=== PATIENT | female | born 1960 | race Caucasian/White ===

== ENCOUNTER 2016-10-06 10:56 | Inpatient (IN) ==
--- NOTE | 2016-10-05 22:04 | Discharge Summary ---
<Adilene Ugalde - Last Filed: 10/05/16 22:01> Date of Encounter: 10/05/16 - Discharge Diagnosis (1) Instability of left knee joint Priority: Primary Status: Acute (2) Tobacco use Priority: Secondary Status: Chronic (3) COPD (chronic obstructive pulmonary disease) Priority: Secondary Status: Chronic Qualifiers: COPD type: unspecified COPD Qualified Code(s): J44.9 - Chronic obstructive pulmonary disease, unspecified (4) Obesity Priority: Secondary Status: Chronic Qualifiers: Obesity type: unspecified obesity type Obesity severity: unspecified obesity severity Qualified Code(s): E66.9 - Obesity, unspecified (5) Asthma Priority: Secondary Status: Chronic Qualifiers: Asthma severity: unspecified severity Asthma complication type: uncomplicated Qualified Code(s): J45.909 - Unspecified asthma, uncomplicated - Discharge Medications Home Medications: Aspirin Enteric Coated [Aspirin EC] 325 mg PO DAILY #21 tablet.dr 10/05/16 [Rx] OxyCODONE Immed Rel [Roxicodone 5 MG] 5 - 10 mg PO Q6HR PRN #40 tablet 10/05/16 [Rx] Albuterol Sulfate [Albuterol Inhaler] 2 puff IH Q4H PRN 10/06/16 [History] Ipratropium [ATROVENT Inhaler] 2 puff IH QID PRN 10/06/16 [History] Allergies/Adverse Reactions: Allergies doxycycline Allergy (Verified 10/06/16 18:15) Rash Tetracycline Allergy (Verified 10/06/16 18:15) Rash Primary care physician: Kaitlin Perry CNP - Patient Status Disposition: Home, Self-Care Condition: Good - Discharge Instructions Follow Up With: Kaitlin Perry CNP [Primary Care Provider] - - Hospital Course Hospital course: Ms. Kelley is a 56 year old female - Time Spent with Patient Total time spent providing and/or coordinating discharge services: <Arron Caceres - Last Filed: 10/07/16 06:47> Date of Encounter: 10/07/16 Time of Encounter: 06:46 - Discharge Diagnosis (1) Instability of left knee joint Priority: Primary Status: Acute (2) Tobacco use Priority: Secondary Status: Chronic (3) COPD (chronic obstructive pulmonary disease) Priority: Secondary Status: Chronic Qualifiers: COPD type: unspecified COPD Qualified Code(s): J44.9 - Chronic obstructive pulmonary disease, unspecified (4) Obesity Priority: Secondary Status: Chronic Qualifiers: Obesity type: unspecified obesity type Obesity severity: unspecified obesity severity Qualified Code(s): E66.9 - Obesity, unspecified (5) Asthma Priority: Secondary Status: Chronic Qualifiers: Asthma severity: unspecified severity Asthma complication type: uncomplicated Qualified Code(s): J45.909 - Unspecified asthma, uncomplicated Primary care physician: Kaitlin Perry CNP - Patient Status Functional capacity at discharge: uses cane/walker Overall status at discharge: patient is progressing back to baseline - Hospital Course Hospital course: Ms. Kelley is a 56 year old female The patient had an uneventful postoperative course. They received antibiotics and physical therapy and were discharged in stable condition. There will follow -up in the office in 2 weeks. Aspirin DVT prophylaxis - Time Spent with Patient Total time spent providing and/or coordinating discharge services:
[2016-10-06] MEDS ORDERED: CeFAZolin Pre 2,000 MG/100 ML 2,000 MG/100 ML BAG IVPB ONE (11:13)
[2016-10-06] MEDS ORDERED: Albuterol 2.5 MG/3 ML NEBULIZER IH ONE (11:13)
[2016-10-06] MEDS ORDERED: Ringers Solution, Lactated 1,000 ML IVC SCH ×2 (11:15→17:37)
[2016-10-06] MEDS ORDERED: Gabapentin 300 MG CAPSULE PO ONE (11:17)
[2016-10-06] MEDS ORDERED: Famotidine 20 MG/2 ML VIAL IVP ONE (11:17)
[2016-10-06] MEDS ORDERED: Albuterol 2.5 MG/3 ML NEBULIZER ONE (11:17)
--- NOTE | 2016-10-06 11:23 | History & Physical Report ---
Date of Encounter: 10/06/16 Time of Encounter: 11:23 24 Hour HP Update - Instructions Instructions: If the History and Physical is less than 30 days old and was completed prior to A.M. admission and or procedure and has NOT been updated on calendar day of procedure please complete this update prior to performing procedure. - Update Patient reports changes in Medical Condition: No Changes in examination, assessment, or condition: No Changes in Medication: No Preop tests/diagnostics Reviewed: Yes Surgery Remains Indicated: Yes Consent for Planned Operative Procedure(s) Verified: Yes - Pre-Operative Checklist Preoperative Checklist Indicated: No Prophylactic Antibiotic Ordered: Yes Is VTE Prophylaxis Indicated?: Yes
--- NOTE | 2016-10-06 12:13 | Anesthesia Evaluation PreOp ---
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 10/05/16 [Rx] OxyCODONE Immed Rel [Roxicodone 5 MG] 5 - 10 mg PO Q6HR PRN #40 tablet 10/05/16 [Rx] Albuterol Sulfate [Albuterol Inhaler] 2 puff IH Q4H PRN 10/06/16 [History] Ipratropium [Atrovent Inhaler] 2 puff IH QID PRN 10/06/16 [History] Allergies doxycycline Allergy (Unverified 09/23/16 14:14) Rash Tetracycline Allergy (Unverified 09/23/16 14:14) Rash - Meds/Allergy Pre-op Review Medications Reviewed: Yes Allergies Reviewed: Yes Beta Blockers on Current Med List: No Anesthesia Results - Labs Laboratory Tests 09/23/16 09/23/16 14:20 14:20 Hgb 15.7 H Hct 51.0 H Plt Count 270 Sodium 139 Potassium 4.3 BUN 9 Creatinine 0.84 - Imaging EKG: report reviewed (SR) Anesthesia Exam O2 Sat Height 1.63 m Height 1.63 m Height 1.63 m Weight 95.254 kg Weight 95.254 kg Weight 95.254 kg O2 Sat by Pulse Oximetry 97 Vital Signs Temp Pulse Resp BP Pulse Ox 98.7 F 79 18 156/93 97 10/06/16 11:12 10/06/16 11:12 10/06/16 11:12 10/06/16 11:12 10/06/16 11:12 Height: 5'4 Weight: 210 lbs NPO (# of Hours): MN Pain Scale: 0 - HEENT Pupil (Motor): Pupils equal, EOMI Mallampati: III Teeth: Missing Oral Opening: Less than or equal to 3 - THERAPEUTIC CONSULTANT LOC: Oriented THERAPEUTIC CONSULTANT Motor: Normal RUE, Normal LUE, Normal RLE, Normal LLE, Normal Face THERAPEUTIC CONSULTANT Sensory: Normal: RUE, LUE, RLE, LLE, Face - Cardiac Rhythm: Regular Murmur: None JVD: No Carotid Bruit: No - Pulmonary Breath Sounds: bilateral Clear Respiratory Effort: Symmetrical Anesthesia Assess/Plan ASA Score: 3 (COPD Tobacco) Modified Alma Scale for Level of Consciousness: Cooperative, oriented, and tranquil Anesthetic Plan: General, Regional Monitoring Plan: Standard Monitors Recovery Plan: PACU (Discussed GA and RA, agrees to proceed)
[2016-10-06] MEDS ORDERED: *HR* FentaNYL (PF) 100 MCG/2 ML VIAL ONE (13:07)
[2016-10-06] MEDS ORDERED: *HR* Midazolam HCl 2 MG/2 ML VIAL ONE ×2 (13:07→13:23)
[2016-10-06] MEDS ORDERED: *HR* Propofol 200 MG/20 ML VIAL IVP ONE (13:08)
[2016-10-06] MEDS ORDERED: Lidocaine -MPF 2% 2 ML VIAL ONE (13:10)
[2016-10-06] MEDS ORDERED: Tetracaine/PF 20 MG/2 ML AMPUL ONE (13:16)
[2016-10-06] MEDS ORDERED: Bupivacaine/Clonidine Syringe 1 EACH SYRINGE ONE (13:17)
[2016-10-06] MEDS ORDERED: Ondansetron 4 MG/2 ML VIAL ONE (13:54)
[2016-10-06] MEDS ORDERED: *HR* Magnesium Sulfate 1 GM/2 ML VIAL ONE (13:54)
[2016-10-06] MEDS ORDERED: Dexamethasone 4 MG/ML VIAL ONE (13:54)
[2016-10-06] MEDS ORDERED: Ketorolac 30 MG/ML VIAL ONE (13:57)
[2016-10-06] MEDS ORDERED: *HR* HYDROmorphone 2 MG/ML SYRINGE ONE (14:03)
[2016-10-06] MEDS ORDERED: *HR* Labetalol 100 MG/20 ML MDV IVP PRN (14:12)
[2016-10-06] MEDS ORDERED: *HR* Promethazine 25 MG/ML VIAL IVP PRN (14:12)
--- NOTE | 2016-10-06 14:15 | Anesthesia Procedures ---
Date of Encounter: 10/06/16 Time of Encounter: 13:30 Procedures: Anesthesia - Nerve Block Procedure Date: 10/06/16 Time: 13:30 Allergies/Adv Reactions: doxycycline, tetracycline Pre-op Diagnosis: left knee instability Surgical Procedure: left TKA revision Checklist: Correct Patient Identifier, Correct procedure, History checked Correct side: Left Blood Thinner: No Monitor Applied: EKG, BP, Pulse Oximetry Supplemental Oxygen via Nasal Cannula (L/min): 2 Sedation: Versed (mg): 4 Sedation: Fentanyl (mcg): 100 Indication: Post Op Analgesia Pre-op Neuro Deficits: No Block Type: Femoral, Other (IPACK) Catheter placed: No Sterile Technique: Yes Ultrasound used: Yes Anatomy identified: Yes Visual spread of Local: Yes Neuro Stimulation: Yes (femoral only) Nerve Stimulator Range: 0.2 - 0.4 mA Blood on Needle Aspiration: No Smooth Injection of Local: Yes Pain with Injection of Local: No Prep: Chlorhexadine Needle: 22 x 50 mm Stimuplex, 21 x 100 mm Stimuplex Local: 0.25% Bupivicaine w/Clonidine 20 mcg/cc, Tetracaine, Ropivacaine Volume (cc): 60 Number of Attempts: 1 (30mL iPACK, 30mL femoral) Complications: None/effective block Vitals: Vital Signs/O2 Sat/Glucose, Most Recent Temp Pulse Resp BP Pulse Ox 98.7 F 68 16 138/93 99 10/06/16 11:12 10/06/16 13:31 10/06/16 13:31 10/06/16 13:31 10/06/16 13:31
--- NOTE | 2016-10-06 15:20 | Orthopedic Operative Note ---
Date of procedure: 10/06/16 Pre-op diagnosis: Unstable left total knee Post-op diagnosis: same Procedure: Procedure: Left revision total knee Estimated blood loss: 200 mL Hardware: No and polyethylene replacement. Biomet SS K 60 left femur 10 x 40 stem , 75 tibia, 24 constrained Perla, Exam Under anesthesia: Full extension and flexion significant varus valgus instability. Well-healed incision of swelling or erythema Procedural Notes: Very Unstable total knee, patient had femoral stem and tibial stem cemented. This affected ability to stem revision femur and tibia. Removal of the cement would have jeopardized the integrity of the bone. Operative procedure: The patient was brought to the operating room and placed on the operating room table. After general anesthesia was administered the operative knee was examined. Findings were noted in the exam under anesthesia. The operative extremity was prepped and draped in sterile surgical fashion. The patient received IV antibiotics prior to skin incision. A standard midline incision was made centered over the patella through the old incision. The incision was made through the skin and subcutaneous tissue. A medial parapatellar tendon approach was performed. Care was taken to preserve tissue along the medial aspect of the patella. And to protect the patella tendon. The deep MCL was released off the medial tibia. The infra patella fat pad was excised. Fluid was encountered this was normal joint fluid, Cultures were obtained and gram . The knee was brought into flexion the poly-was removed. The interface between the patient's femoral component and distal femur were disrupted with a osteotome and oscillating saw. Femoral component was removed the femoral stem remained behind and required extraction with a stem extracting device. Patient had a lot of retained cement. Removal of the cement would have compromised the femoral canal and distal femur. Attention was then turned to the tibial component. The same technique was used to remove the tibial component by disrupting the interface between the patient's tibial component and the patients proximal tibia. The tibial stem as well as left behind and required removal with a stem extraction device. The proximal tibia was also full cement operative significantly, my integrity of the tibia the cement was removed. Decision was made to be cement the squared tibial component without stem. The tibia was sized to a 75 the proximal tibia was box cut the tray had good fit and fixation. The femur was sized to a 60, the trial had good fit and fixation with a 10 x 40 stem. Both trial components were seated and the 24 constrained Perla was seated and secured. The knee had full flexion and full extension with no instability. The patella had excellent tracking. The trial components were removed. The knee sat for 2 minutes with a Betadine saline solution. It was irrigated out with 2 L of pulse irrigation. The components were cemented in place tibia first followed by the femur. The 24 constrained liner was seated and secure. The knee was brought to full extension while the cement hardened. After the cement hardened the knee was irrigated out again. The extensor mechanism was closed with a running #2 Fiberwire suture and a running #2 PDS suture. The deep tissue was irrigated and closed deep with #1 PDS suture superficially with 0 PDS suture. The skin was closed with skin phoenix. The patient was placed in a sterile dressing and postoperative brace. They were extubated and transferred to recovery room in stable condition. Anesthesia: SOL Surgeon: Arron Caceres Medical Delivery Driver: Adilene Ugalde Condition: stable Disposition: PACU
[2016-10-06] MEDS: *HR* HYDROmorphone (PF) 1 MG/ML SYRINGE IVP PRN ×4 (15:55→20:41)
[2016-10-06 16:09] LABS: Hematocrit 44.6 % (35.3-44.9)
--- NOTE | 2016-10-06 16:25 | Anesthesia Evaluation Post Op ---
Date of Encounter: 10/06/16 Time of Encounter: 16:24 - Vital Signs Vital Signs: Selected Entries 10/06/16 16:10 Temperature 98.5 F Pulse Rate 72 Respiratory Rate 16 Blood Pressure 126/80 O2 Sat by Pulse Oximetry 94 - Lungs Lungs: Clear Ascult./Percussion - Airway Airway: Non-obstructed - Cardiovascular Regular Rate - Mental Status Mental Status: Alert & Oriented, Answers Appropriately - Pain Pain Scale: 0 Pain Scale used: Numeric (1 - 10) - Nausea Vomiting Nausea Vomiting: Not Present - Hydration Hydration: Ice chips, Chen catheter - Discharge PostOp Status: Transfer Patient to floor
[2016-10-06] MEDS ORDERED: *HR* OxyCODONE Immed Rel 5 MG TABLET PO PRN (17:37)
[2016-10-06] MEDS ORDERED: Naloxone 0.4 MG/ML INJ IVP PRN (17:37)
[2016-10-06] MEDS ORDERED: Ipratropium 1 PUFF INHALER IH PRN (17:37)
[2016-10-06] MEDS ORDERED: Temazepam 15 MG CAPSULE PO PRN (17:37)
[2016-10-06] MEDS ORDERED: Sennosides 8.6 MG TABLET PO PRN (17:37)
[2016-10-06] MEDS ORDERED: Ondansetron 4 MG/2 ML VIAL IVP PRN (17:37)
[2016-10-06] MEDS ORDERED: MOM Conc 10 ML UD.LIQ PO PRN (17:37)
[2016-10-06] MEDS: *HR* Enoxaparin 30 MG/0.3 ML SYRINGE SQ SCH (17:59)
[2016-10-06] MEDS ORDERED: *HR* Enoxaparin 30 MG/0.3 ML SYRINGE SQ SCH (18:00)
[2016-10-06] MEDS: Nicotine 21 MG PATCH.TD24 TD SCH (20:41)
[2016-10-06] MEDS: ceFAZolin 2,000 MG in D5% in Water 100 ML IVPB SCH (20:42)
[2016-10-06] MEDS: *HR* OxyCODONE Immed Rel 5 MG TABLET PO PRN (23:01)
[2016-10-07] MEDS: *HR* HYDROmorphone (PF) 1 MG/ML SYRINGE IVP PRN ×3 (00:22→06:37)
[2016-10-07] MEDS: ceFAZolin 2,000 MG in D5% in Water 100 ML IVPB SCH (04:16)
[2016-10-07] MEDS: *HR* Enoxaparin 30 MG/0.3 ML SYRINGE SQ SCH (05:19)
[2016-10-07] MEDS: *HR* OxyCODONE Immed Rel 5 MG TABLET PO PRN ×2 (05:19→09:14)
[2016-10-07 06:32] LABS: Hematocrit 41.6 % (35.3-44.9); Hemoglobin 12.9 g/dL (11.5-15.4)
--- NOTE | 2016-10-07 06:47 | Orthopedics Progress Note ---
Date of Encounter: 10/07/16 Time of Encounter: 06:47 - Assessment and Plan (1) Instability of left knee joint Current Visit: Yes Status: Acute (2) Tobacco use Current Visit: Yes Status: Chronic (3) COPD (chronic obstructive pulmonary disease) Current Visit: Yes Status: Chronic Qualifiers: COPD type: unspecified COPD Qualified Code(s): J44.9 - Chronic obstructive pulmonary disease, unspecified (4) Obesity Current Visit: Yes Status: Chronic Qualifiers: Obesity type: unspecified obesity type Obesity severity: unspecified obesity severity Qualified Code(s): E66.9 - Obesity, unspecified (5) Asthma Current Visit: Yes Status: Chronic Qualifiers: Asthma severity: unspecified severity Asthma complication type: uncomplicated Qualified Code(s): J45.909 - Unspecified asthma, uncomplicated Subjective Interval history: Patient was seen this morning doing well without complaints. Afebrile vital signs stable. Operative extremity: Neurovascularly intact Dressing clean dry and intact Calves nontender Assessment and plan: Continue with postoperative care Hematocrit 41 discharged today Objective Vital signs: Vital Signs Temp Pulse Resp BP Pulse Ox 10/07/16 06:35 71 123/76 10/07/16 04:23 97.6 F 56 16 96/63 95 10/06/16 23:44 97.8 F 80 16 109/71 94 10/06/16 20:15 98.8 F 64 16 132/68 95 10/06/16 18:23 77 125/80 98 10/06/16 17:30 80 130/89 97 10/06/16 16:45 66 134/82 10/06/16 16:30 97.6 F 78 16 126/84 97 10/06/16 16:20 80 16 124/85 98 10/06/16 16:10 98.5 F 72 16 126/80 94 10/06/16 16:00 73 16 130/66 94 10/06/16 15:50 88 16 131/97 94 10/06/16 15:40 97.5 F L 80 16 123/84 97 10/06/16 13:31 68 16 138/93 99 10/06/16 13:16 72 16 146/80 99 10/06/16 11:12 98.7 F 79 18 156/93 97 Intake and Output 10/06/16 10/06/16 10/07/16 15:59 23:59 07:59 Intake Total 100 / 100 100 / 100 580 / 580 Output Total 200 / 200 Balance -100 / -100 100 / 100 580 / 580 Intake: IV Fluids 100 / 100 100 / 100 100 / 100 Ancef Premix 2,000 MG/100 100 / 100 ML 2,000 mg In 100 ml @ 200 mls/hr IVPB PREOP ONE Rx#:[id number] Ancef 2,000 MG In 100 / 100 100 / 100 Dextrose 5% 100 ML @ 200 mls/hr IVPB Q8H [facility] Rx#: [id number] Oral 480 / 480 Output: Urine 0 / 0 Estimated Blood Loss 200 / 200 Other: Weight 95.254 kg - Labs CBC & BMP: 10/07/16 06:15 - VTE Documentation of Mechanical Device: Intermittent pneumatic compression device Consult Discharge Plan - Plan Referrals: Kaitlin Perry, ACCOUNT SERVICE ASSOCIATE [Primary Care Provider] -
[2016-10-07 06:50] LABS: BUN/Creatinine Ratio 21 (6-26); Blood Urea Nitrogen 17 mg/dL (7-20); Calcium 8.9 mg/dL (8.6-10.8); Carbon Dioxide 21 mEq/L (19-29); Chloride 108 mEq/L (98-109); Glucose 124 mg/dL (70-99); Osmolality,Calculated 285 (280-300); Potassium 4.3 mEq/L (3.5-4.5); Sodium 136 mEq/L (136-145); eGFR For African Americans > 60 (> 60); eGFR For Non-African Americans > 60 (> 60)
[2016-10-07 06:55] VITALS: BP 166/72
[2016-10-07] MEDS: Nicotine 21 MG PATCH.TD24 TD SCH (09:13)
== END 2016-10-07 13:47 | disposition home or self-care (01) | DRG 302 ==
LOC: SAMDAY 10:56 → 3NENU 17:29
PROVIDERS: ADMIT Orthopaedic Surgery; ATTEND Orthopaedic Surgery

== ENCOUNTER 2017-03-05 17:58 | Observation (INO) ==
--- NOTE | 2017-03-05 18:57 | Emergency Department Note ---
Disposition Clinical Impression: Stable angina Disposition: Admitted As Inpatient Condition: Good Time of Disposition: 20:36 Chest Pain HPI - General Chief Complaint: ED Chest Pain Stated Complaint: "water around my heart", sent from Time Seen by Provider: 03/05/17 18:21 Source: patient Mode of arrival: ambulatory Limitations: no limitations Vital Signs Reviewed: Yes Nursing Notes Reviewed: Yes - History of Present Illness HPI Narrative: Patient presents to the ED with the chief complaint of chest pain and shortness of breath. Patient reports that she has a history of "A. fib" that was diagnosed at [facility] 5 years ago. States she had a normal stress test and heart catheter at that point. States she was not placed on any medication or anticoagulants. Reports doing well since then. States that she has been dealing with a terminal illness and her mother and is been under a lot of stress. For the last 2 days she has been having intermittent, but fairly consistent chest pressure and heaviness that is retrosternal, radiating through to her back. She is also having some shortness of breath and exertional dyspnea. Also complaining of bilateral lower extremity edema significantly worse last week and has since improved. States she just feels like she is getting more short of breath than usual. States that she went to her primary care physician today who told her she had fluid around her lungs and heart based on physical exam, and that she needed to go to the emergency department. She states she feels relatively fine otherwise. She is on no anticoagulants or antiplatelet medications. Her last cardiac evaluation was 5 years ago. No history of DVT, PE, or malignancy. No history of coronary artery disease. Severity scale (1-10): 7 - Related Data Home Medications Medication Instructions Recorded Confirmed Albuterol Sulfate [Albuterol 2 puff IH Q4H PRN 10/06/16 03/05/17 Inhaler] Ipratropium [ATROVENT Inhaler] 2 puff IH QID PRN 10/06/16 03/05/17 Previous Rx's Medication Instructions Recorded Aspirin Enteric Coated [Aspirin EC] 81 mg PO DAILY #30 tablet.dr 03/06/17 Atorvastatin [Lipitor] 40 mg PO HS #30 tablet 03/06/17 Isosorbide MONOnitrate (24 HR) 30 mg PO DAILY #30 tab.er.24h 03/06/17 [Imdur] Metoprolol XL (24 HR) Succ [Toprol 12.5 mg PO DAILY #15 tab.er.24h 03/06/17 Xl] Nitroglycerin 0.4 mg SL Q5MIN PRN #25 tab.subl 03/06/17 Allergies Allergy/AdvReac Type Severity Reaction Status Date / Time doxycycline Allergy Rash Verified 03/07/17 18:54 Tetracycline Allergy Rash Verified 03/07/17 18:54 All systems ED: reviewed and negative except as stated. Constitutional: Denies: fever Cardiovascular: Reports: chest pain, palpitations, dyspnea on exertion, orthopnea, edema. 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 Absent: normal lung sounds bilaterally - Cardiovascular Cardiovascular exam: Present: regular rate, normal rhythm, normal heart sounds - Abdominal Exam Abdominal exam: Present: soft, Non-Tender. Absent: tenderness, distention, guarding, rebound, rigidity - Extremities Exam Extremities exam: Present: normal inspection, full ROM. Absent: tenderness, pedal edema - Neurological Exam Neurological exam: Present: alert, oriented X3 - Psychiatric Psychiatric exam: Present: normal affect, normal mood - Skin Skin exam: Present: warm, dry, intact, normal color Course Course Narrative: Patient presenting with chest pain and exertional dyspnea. He sounds like it could be an early congestive heart failure. Will workup and disposition pending. Patient stable Vital Signs Temperature 98.4 F 03/05/17 18:15 Pulse Rate 77 03/05/17 18:15 Respiratory Rate 16 03/05/17 18:15 Blood Pressure 144/92 03/05/17 18:15 O2 Sat by Pulse Oximetry 99 03/05/17 18:15 Temperature 98 F 03/06/17 12:05 Pulse Rate 75 03/06/17 12:05 Respiratory Rate 18 03/06/17 12:05 Blood Pressure 109/73 03/06/17 12:05 O2 Sat by Pulse Oximetry 97 03/06/17 12:05 Oxygen Delivery Oxygen Delivery Room Air Chest Pain - Medical Records Medical records reviewed: Yes I reviewed the patient's medical records. - Lab Data Lab results reviewed: Yes I reviewed the patient's lab results. Result diagrams: 03/06/17 00:56 03/06/17 00:56 Lab Results 03/05/17 03/05/17 03/05/17 Range/Units 18:46 18:46 18:46 WBC 7.1 (4.3-11.1) K/mcL RBC 5.31 H (3.82-4.97) M/mcL Hgb 13.3 (11.5-15.4) g/dL Hct 43.3 (35.3-44.9) % MCV 81.5 L (83.0-100.0) fL MCH 25.0 L (28.0-33.3) pg MCHC 30.7 L (31.6-35.5) g/dL RDW 16.6 H (11.5-14.5) % Plt Count 284 (140-400) K/mcL MPV 9.6 (9.4-12.4) fL Immature Gran % 0.4 (0-4) % Seg Neutrophils % 56.3 % Lymphocytes % 30.8 % Monocytes % 7.7 % Eosinophils % 3.8 % Basophils % 1.0 % Neutrophils # 4.0 (1.6-8.9) K/mcL Lymphocytes # 2.2 (0.6-4.6) K/mcL Monocytes # 0.5 (0.0-1.3) K/mcL Eosinophils # 0.3 (0.0-0.6) K/mcL Basophils # 0.1 (0.0-0.2) K/mcL PT 10.9 (9.4-12.1) Seconds INR 1.0 APTT 28.4 (26.0-36.0) Seconds Sodium (136-145) mEq/L Potassium (3.5-4.5) mEq/L Chloride (98-109) mEq/L Carbon Dioxide (19-29) mEq/L BUN (7-20) mg/dL Creatinine (0.57-1.11) mg/dL Est GFR ( Amer) (> 60) Est GFR (Non-Af Amer) (> 60) BUN/Creatinine Ratio (6-26) Glucose (70-99) mg/dL Calculated Osmolality (280-300) Calcium (8.6-10.8) mg/dL Troponin I (0-0.03) ng/mL B-Natriuretic Peptide 18 (0-100) pg/mL 03/05/17 03/05/17 Range/Units 18:46 18:46 WBC (4.3-11.1) K/mcL RBC (3.82-4.97) M/mcL Hgb (11.5-15.4) g/dL Hct (35.3-44.9) % MCV (83.0-100.0) fL MCH (28.0-33.3) pg MCHC (31.6-35.5) g/dL RDW (11.5-14.5) % Plt Count (140-400) K/mcL MPV (9.4-12.4) fL Immature Gran % (0-4) % Seg Neutrophils % % Lymphocytes % % Monocytes % % Eosinophils % % Basophils % % Neutrophils # (1.6-8.9) K/mcL Lymphocytes # (0.6-4.6) K/mcL Monocytes # (0.0-1.3) K/mcL Eosinophils # (0.0-0.6) K/mcL Basophils # (0.0-0.2) K/mcL PT (9.4-12.1) Seconds INR APTT (26.0-36.0) Seconds Sodium 141 (136-145) mEq/L Potassium 4.1 (3.5-4.5) mEq/L Chloride 108 (98-109) mEq/L Carbon Dioxide 28 (19-29) mEq/L BUN 10 (7-20) mg/dL Creatinine 0.77 (0.57-1.11) mg/dL Est GFR ( Amer) > 60 (> 60) Est GFR (Non-Af Amer) > 60 (> 60) BUN/Creatinine Ratio 13 (6-26) Glucose 89 (70-99) mg/dL Calculated Osmolality 291 (280-300) Calcium 9.8 (8.6-10.8) mg/dL Troponin I 0.00 (0-0.03) ng/mL B-Natriuretic Peptide (0-100) pg/mL - Radiology Data Radiology results reviewed: Yes I reviewed the patient's radiology results. Chest X-Ray 03/05/17 18:31 IMPRESSION: No acute process. D/ / Tracey Sam MD / Tracey Sam MD Interpreting Provider: Tracey Sam MD - EKG Data EKG attestation: Yes I reviewed and interpreted this EKG. EKG results narrative: Sinus rhythm, rate 70, IL interval 145, QRS 114, QTC 408, left axis deviation, incomplete right bundle branch block, unchanged from previous on 09/23/2016 Heart Score - Score History: Moderately Suspicious EKG: Non Specific repolarisation Disturbance Age: 45-65 Risk Factors: Equal/Greater than 3 risk factor or history of atherosclerotic disease Troponin: Less than normal limit HEART Score Total: 5 S.B.A.R. - S.B.A.ROlive Situation: Demographics, MOA Background: Presenting Complaint, Relevant PMH, Meds, & Allergies Assessment: Vital Signs, Course and respsone to treatment, Exam Concerns, Patient/Family Expectation, Pertinant Lab Results, Outstanding Labs Recommendation: Barrier(s) to disposition, Recommendation based on pending studies, treatments, or consults S.B.A.R. Report Given to: Caroline Lambert Time: 20:40 Attestation Statement - Attestation Attestation: I examined this patient and my medical decision-making was reviewed with the Resident Physician, Dr. Santana. I agree with the documented findings, disposition and treatment plan as described except to the extent set forth below. Pt is a 56 yo wf, here with c/o exertional dyspnea and CP. Pt last cardiac eval approx 5 yrs ago. Told to come to ED after clincial eval by PCP concerning for "fluid around her heart". I agree with pt's PE findings as documented. VSS. EKG shows NSR with no acute ischemia. CXR clear. Labs wnl includ trop. Pt admitted for further eval of CP, VSS.
[2017-03-05 19:08] LABS: Basophils # 0.1 K/mcL (0.0-0.2); Eosinophils # 0.3 K/mcL (0.0-0.6); Eosinophils % 3.8 %; Hematocrit 43.3 % (35.3-44.9); Hemoglobin 13.3 g/dL (11.5-15.4); Immature Granulocytes % 0.4 % (0-4); Lymphocytes # 2.2 K/mcL (0.6-4.6); Lymphocytes % 30.8 %; Mean Corpuscular HGB Conc 30.7 g/dL (31.6-35.5); Mean Corpuscular Volume 81.5 fL (83.0-100.0); Mean Platelet Volume 9.6 fL (9.4-12.4); Monocytes # 0.5 K/mcL (0.0-1.3); Monocytes % 7.7 %; Platelet Count 284 K/mcL (140-400); Red Blood Count 5.31 M/mcL (3.82-4.97); Red Cell Distribution Width 16.6 % (11.5-14.5); Segmented Neutrophils % 56.3 %
[2017-03-05 19:14] LABS: Prothrombin Time 10.9 Seconds (9.4-12.1)
[2017-03-05 19:16] LABS: Activated Partial Thrombo Time 28.4 Seconds (26.0-36.0)
[2017-03-05 19:23] LABS: BUN/Creatinine Ratio 13 (6-26); Blood Urea Nitrogen 10 mg/dL (7-20); Calcium 9.8 mg/dL (8.6-10.8); Carbon Dioxide 28 mEq/L (19-29); Chloride 108 mEq/L (98-109); Glucose 89 mg/dL (70-99); Osmolality,Calculated 291 (280-300); Potassium 4.1 mEq/L (3.5-4.5); Sodium 141 mEq/L (136-145); eGFR For African Americans > 60 (> 60); eGFR For Non-African Americans > 60 (> 60)
[2017-03-05] MEDS ORDERED: Aspirin 325 MG TABLET PO ONE (19:33)
[2017-03-05] MEDS: Nitroglycerin 0.4 MG TAB.SUBL SL PRN ×2 (19:59→20:03)
[2017-03-05] MEDS ORDERED: Ondansetron 4 MG/2 ML VIAL IVP PRN (21:01)
[2017-03-05] MEDS ORDERED: Naloxone 0.4 MG/ML INJ IVP PRN (21:01)
[2017-03-05] MEDS ORDERED: Acetaminophen 325 MG TABLET PO PRN (21:01)
[2017-03-05] MEDS: *HR* Morphine 2 MG/ML SYRINGE IVP PRN (23:05)
--- NOTE | 2017-03-05 23:33 | Internal Med History&Physical ---
<Lisa Daniel - Last Filed: 03/05/17 23:41> Date of Encounter: 03/05/17 Time of Encounter: 23:28 Assessment and Plan (1) Chest pain Current visit: Yes Status: Acute Patient has been experiencing intermittent chest pain the past 2 days. She does have history of paroxysmal atrial fibrillation- obesity and is a smoker First troponin was 0 we will continue to trend. 2 continuous cardiac monitoring 3 continue with aspirin we will check lipid profile at statin will hold beta muriel and Geo for now due to low blood pressure 4 nothing by mouth after midnight for cardiac stress in a.m. 5 nitroglycerin/morphine as needed for chest pain 6 oxygen as needed 7 consult cardiology as needed Qualifiers: Chest pain type: unspecified Qualified Code(s): R07.9 - Chest pain, unspecified (2) Tobacco use Current visit: No Status: Chronic Encourage patient to stop smoking- nicotine patch (3) COPD (chronic obstructive pulmonary disease) Current visit: No Status: Chronic Oxygen as needed Bronchodilators Qualifiers: COPD type: unspecified COPD Qualified Code(s): J44.9 - Chronic obstructive pulmonary disease, unspecified (4) DVT prophylaxis Current visit: Yes Status: Acute Lovenox [facility] Internal Medicine - H&P: HPI Chief complaint: cp Admitted From: Emergency Dept Plans for Post Hospital Care: Home History of present illness: Ms. Kelley is a 56 year old female past medical history of arthritis atrial fibrillation COPD hypertension. According to the patient for the past 2 days she is been experiencing intermittent chest pressure she describes as heaviness midsternal radiating to her back. She has associated symptoms of shortness of breath palpitations and exertional dyspnea. She also has been increasing lower extremity edema. She went to her primary care physician today who based upon the physical exam she had fluid around her lungs and that she needed to the emergency department. She also reports that proximal and 5 years ago at [facility] she underwent a cardiac catheter which she did not receive any stents however she did experience atrial fibrillation. She has been in sinus rhythm since this episode. She is not on any anticoagulations and A late or anything for rate control. She does admit that she has been under stress she has been providing care to her terminally ill mother. She presents to the ER with the above complaints. EKG was sinus rhythm with a incomplete right bundle branch block no ST-T wave abnormalities troponin was 0 she was admitted for further workup and evaluation. Presently patient is chest pain-free and denies any shortness of breath she is hemodynamically stable this time. Did review this case with Dr. Velazquez who agrees with plan Past Med Surg Social Fam HX - Past Medical History Medical history: arthritis, atrial fibrillation, COPD Psychiatric history: no psych history - Social History Smoking Status: Current every day smoker Smokeless Tobacco Status: No Alcohol use: none Drug use: none - Family History Mother Hx Family Cardiac Disorders: Yes Hx Family Respiratory Disorders: Yes Hx Family Genitourinary Disorders: Yes Father Living Status: Hx Family Cardiac Disorders: Yes Hx Family Endocrine Disorder: Yes Internal Medicine - H&P: Meds Albuterol Sulfate [Albuterol Inhaler] 2 puff IH Q4H PRN 10/06/16 [History] Ipratropium [ATROVENT Inhaler] 2 puff IH QID PRN 10/06/16 [History] 3 Allergy/AdvReac Type Severity Reaction Status Date / Time doxycycline Allergy Rash Verified 03/05/17 18:18 Tetracycline Allergy Rash Verified 03/05/17 18:18 All Systems PM: A 10-system review of systems was performed and is negative for pertinent findings except as documented above in the HPI. - Constitutional Constitutional: no chills, no fever(s), no night sweats - EENT Eyes: no change in vision, no discharge, no pain, no photophobia Nose, mouth and throat: no dysphagia, no nasal discharge, no neck pain, no sore throat - Cardiovascular Cardiovascular ROS IM: chest pain, dyspnea, dyspnea on exertion, palpitations, no diaphoresis, no lightheadedness, no syncope - Respiratory Respiratory: dyspnea on exertion, no cough, no dyspnea, no wheezing, no excessive phlegm production - Gastrointestinal Gastrointestinal: no abdominal pain, no diarrhea, no hematemesis, no hematochezia, no melena, no nausea, no vomiting - Genitourinary Genitourinary: no change in urinary stream, no dysuria, no flank pain, no hematuria - Musculoskeletal Musculoskeletal ROS IM: no numbness, no tingling - Integumentary Integumentary IM: no rash, no unusual bruising - Neurological Neurological ROS: no confusion, no convulsions, no focal weakness, no numbness, no tingling, no tremor(s) - Hematologic/Lymphatic Hematologic/Lymphatic: no easy bruising - Constitutional Vitals: Temp Pulse Resp BP Pulse Ox 97.8 F 80 16 109/67 94 03/05/17 23:18 03/05/17 23:18 03/05/17 23:18 03/05/17 23:18 03/05/17 23:18 General appearance: Present: A&O X 3, answers questions appropriately - Head Head exam: Present: atraumatic, normocephalic - Eye Eye exam: Present: PERRL, conjuntiva pink, sclera anicteric Pupils: Present: PERRL - Neck Neck exam general surgery: Present: supple, trachea midline. Absent: lymphadenopathy - Respiratory Respiratory exam: Present: CTAB. Absent: accessory muscle use, rales, rhonchi, wheezes - Cardiovascular Cardiovascular exam: Present: RRR, +S1, +S2. Absent: diastolic murmur, gallop, rubs, systolic murmur - GI/Abdominal GI/Abdominal exam: Present: normal bowel sounds, soft, no peritoneal signs. Absent: distended, tenderness - Extremities Exam Extremities exam: Present: warm, radial pulses palpable and symmetrical. Absent : calf tenderness, cyanotic, pedal edema - Neurological Exam Neurological exam: Present: CN II-XII intact, oriented X3, no focal deficits. Absent: pronater drift, facial droop, speech deficit - Skin Skin exam: Present: dry, intact Internal Med - H&P Results - Labs CBC & Chem 7: 03/05/17 18:46 03/05/17 18:46 - EKG Data EKG shows normal: sinus rhythm - EKG Data Prior EKG available for review: yes When compared to previous EKG: there is no significant change - Diagnostic Studies Other Images Additional comments: Chest X-Ray 03/05/17 18:31 IMPRESSION: No acute process. D/ / Tracey Sam MD / Tracey Sam MD Interpreting Provider: Tracey Sam MD <Diogenes Velazquez - Last Filed: 03/06/17 04:18> Date of Encounter: 03/05/17 Internal Medicine - H&P: HPI History of present illness: Ms. Kelley is a 56 year old female All Systems PM: A 10-system review of systems was performed and is negative for pertinent findings except as documented above in the HPI. - Constitutional Vitals: Temp Pulse Resp BP Pulse Ox 97.8 F 69 16 93/58 96 03/06/17 03:37 03/06/17 03:37 03/06/17 03:37 03/06/17 03:37 03/06/17 03:37 Internal Med - H&P Results - Labs CBC & Chem 7: 03/06/17 00:56 03/06/17 00:56 Labs: Short CBC 03/06/17 Range/Units 00:56 WBC 6.4 (4.3-11.1) K/mcL Hgb 13.2 (11.5-15.4) g/dL Hct 42.5 (35.3-44.9) % Plt Count 265 (140-400) K/mcL Neutrophils # 3.7 (1.6-8.9) K/mcL BMP 03/06/17 00:56 Sodium 141 Potassium 4.0 Chloride 108 Carbon Dioxide 27 BUN 11 Creatinine 0.81 Glucose 113 H Calcium 9.3 Cardiac Enzymes 03/06/17 Range/Units 00:56 Troponin I 0.00 (0-0.03) ng/mL - Attending Attestation I personally interviewed and examined this patient and my medical decision- making was reviewed with the Advanced Practice Nurse. I agree with the documented findings, disposition and treatment plan as described. Diogenes Velazquez MD, MPH Hospitalist
[2017-03-06 01:08] LABS: Basophils % 0.6 %; Eosinophils # 0.3 K/mcL (0.0-0.6); Eosinophils % 4.2 %; Hematocrit 42.5 % (35.3-44.9); Hemoglobin 13.2 g/dL (11.5-15.4); Immature Granulocytes % 0.3 % (0-4); Lymphocytes % 30.4 %; Mean Corpuscular HGB Conc 31.1 g/dL (31.6-35.5); Mean Corpuscular Hemoglobin 25.2 pg (28.0-33.3); Mean Corpuscular Volume 81.3 fL (83.0-100.0); Mean Platelet Volume 9.4 fL (9.4-12.4); Monocytes # 0.5 K/mcL (0.0-1.3); Monocytes % 7.3 %; Neutrophils # 3.7 K/mcL (1.6-8.9); Platelet Count 265 K/mcL (140-400); Red Blood Count 5.23 M/mcL (3.82-4.97); Red Cell Distribution Width 16.5 % (11.5-14.5); Segmented Neutrophils % 57.2 %
[2017-03-06 01:24] LABS: BUN/Creatinine Ratio 14 (6-26); Blood Urea Nitrogen 11 mg/dL (7-20); Calcium 9.3 mg/dL (8.6-10.8); Carbon Dioxide 27 mEq/L (19-29); Chloride 108 mEq/L (98-109); Chol/HDL Ratio 4.2 (0-4.9); Cholesterol 164 mg/dL (< 200); Glucose 113 mg/dL (70-99); HDL Cholesterol 39 mg/dL (40-59); LDL Cholesterol,Calculated 73 mg/dL (0-99); Magnesium 1.8 mg/dL (1.6-2.6); Osmolality,Calculated 292 (280-300); Sodium 141 mEq/L (136-145); Triglycerides 258 mg/dL (< 150); eGFR For African Americans > 60 (> 60); eGFR For Non-African Americans > 60 (> 60)
[2017-03-06] MEDS: *HR* Morphine 2 MG/ML SYRINGE IVP PRN ×2 (04:16→09:56)
[2017-03-06] MEDS ORDERED: Regadenoson 0.4 MG/5 ML SYRINGE IVP ONE (06:11)
[2017-03-06] MEDS ORDERED: *HR* Enoxaparin 40 MG/0.4 ML SYRINGE SQ SCH (07:00)
[2017-03-06] MEDS ORDERED: Aspirin Enteric Coated 81 MG Tablet PO SCH (09:00)
[2017-03-06 12:06] VITALS: BP 109/73
--- NOTE | 2017-03-06 14:06 | Discharge Summary ---
Date of Encounter: 03/06/17 Time of Encounter: 13:50 - Discharge Diagnosis (1) Chest pain Priority: Primary Status: Acute Comments: Patient has been experiencing intermittent chest pain for the past 2 days. She states that it is midsternal with radiation to left shoulder, with intermittent nausea and shortness of breath. She denies diaphoresis or vomiting. She says it is a pressure, and she states that it is currently a 6/10. She is requesting morphine prior to discharge. She states that her chest pain is most likely due to stress at home, caring for her ill mother. Troponins were negative 3 Chest x-ray was negative for any acute process Nuclear stress test was positive for ischemia. There is a small sized, mildly intense reversible defect and apical inferolateral wall. Gated EF 68%. C in 2012 at [place], no vessel disease and no stents. Patient was seen by cardiology. They will medically manage with Imdur. We will also continue aspirin, statin, beta muriel, and nitroglycerin when necessary. Echo in 2013 EF 60-65%, moderate LVDD, mildly idlated LA, no significant valvular dysfunction. Close follow-up with cardiology after discharge. Qualifiers: Chest pain type: unspecified Qualified Code(s): R07.9 - Chest pain, unspecified (2) Abnormal stress test Priority: Secondary Status: Acute Comments: Plan as above. Close following up with cardiology after discharge. (3) Tobacco use Priority: Secondary Status: Chronic Comments: Discussed smoking cessation with patient. States that she is not ready to stop smoking at this time. She has multiple stressors at home with family, now is not a good time. (4) COPD (chronic obstructive pulmonary disease) Priority: Secondary Status: Chronic Comments: No acute exacerbation at this time. Lungs are clear and diminished throughout. Patient denies worsening of normal cough. She is not requiring supplemental oxygen. Continue normal home medications. Patient denies need for refills on inhalers. Qualifiers: COPD type: unspecified COPD Qualified Code(s): J44.9 - Chronic obstructive pulmonary disease, unspecified (5) Asthma Priority: Secondary Status: Chronic Comments: Per patient history. Plan as above for COPD. Qualifiers: Asthma severity: unspecified severity Asthma persistence: unspecified Asthma complication type: uncomplicated Qualified Code(s): J45.909 - Unspecified asthma, uncomplicated (6) Obesity (BMI 35.0-39.9 without comorbidity) Priority: Secondary Status: Acute (7) Obesity (BMI 30-39.9) Priority: Secondary Status: Chronic Comments: Chronic. Implement lifestyle changes. Pt could benefit from outpt referral to nutrition counseling. (8) DVT prophylaxis Priority: Secondary Status: Acute Comments: Lovenox subcutaneous. Patient has been ambulatory. - Discharge Medications Prescriptions: Nitroglycerin 0.4 mg SL Q5MIN PRN #25 tab.subl PRN Reason: Chest Pain Aspirin Enteric Coated [Aspirin EC] 81 mg PO DAILY #30 tablet. Atorvastatin [Lipitor] 40 mg PO HS #30 tablet Isosorbide MONOnitrate (24 HR) [Imdur] 30 mg PO DAILY #30 tab.er.24h Metoprolol XL (24 HR) Succ [Toprol Xl] 12.5 mg PO DAILY #15 tab.er.24h Home Medications: Albuterol Sulfate [Albuterol Inhaler] 2 puff IH Q4H PRN 10/06/16 [History] Ipratropium [ATROVENT Inhaler] 2 puff IH QID PRN 10/06/16 [History] Aspirin Enteric Coated [Aspirin EC] 81 mg PO DAILY #30 tablet. 03/06/17 [Rx] Atorvastatin [Lipitor] 40 mg PO HS #30 tablet 03/06/17 [Rx] Isosorbide MONOnitrate (24 HR) [Imdur] 30 mg PO DAILY #30 tab.er.24h 03/06/17 [ Rx] Metoprolol XL (24 HR) Succ [Toprol Xl] 12.5 mg PO DAILY #15 tab.er.24h 03/06/17 [Rx] Nitroglycerin 0.4 mg SL Q5MIN PRN #25 tab.subl 03/06/17 [Rx] Allergies/Adverse Reactions: 3 Allergy/AdvReac Type Severity Reaction Status Date / Time doxycycline Allergy Rash Verified 03/05/17 18:18 Tetracycline Allergy Rash Verified 03/05/17 18:18 Procedures/tests Complete & Pending: Procedures Performed prior 72 hours Category Date Time Status NM dolores perf SPECT multi [NM] Routine Exams 03/05/17 23:26 Taken SP pharm nuclear stress Routine Y 03/05/17 23:26 Completed Date of admission: 03/05/17 21:01 Primary care physician: PCP NONE Consults: 03/06/17 13:11 Consult to Cardiology [CONS] Routine Comment: Consulting Provider: Cardiology Daly Reason for Consult: abnormal stress Call Completed: Yes Discharging clinician: Yaneth Nevarez Anticipated date of discharge: 03/06/17 - Patient Status Disposition: Home, Self-Care Condition: Good Functional capacity at discharge: independent ambulation Overall status at discharge: patient is back to baseline - Discharge Instructions Instructions: Chest Pain (DC) Follow Up With: Leah Gray MD [Partnered Physician] - 03/11/17 9:00 am - Diet and Activity Activity: increase activity as tolerated Diet: diabetic diet, low fat, low cholesterol, low salt diet Hospital course: Ms. Kelley is a 56 year old female with past medical history chronic pain, tobacco use, COPD, asthma, multiple ortho surgeries, and obesity. Pt with chest pain/pressure with radiation to L shoulder. Stress test positive for ischemia. Pt will have close follow up with cardiology and start Imdur for chest pain. Pt had an order for Morphine and has requested it several times today. RN discouraged it and encouraged Tylenol. Pt requested it from me when I saw her, and as I was walking out of the room, in the hallway, I heard pt say, "I need my shot of dope before I go home." Possible drug seeking behaviors observed. Labs and vitals are stable. Pt will be started on ASA, statin, BB, Imdur, and NTG. Pt is stable and appropriate for discharge. - Time Spent with Patient Total time spent providing and/or coordinating discharge services: Less than 30 minutes - Constitutional Vitals: Temp Pulse Resp BP Pulse Ox 98 F 75 18 109/73 97 03/06/17 12:05 03/06/17 12:05 03/06/17 12:05 03/06/17 12:05 03/06/17 12:05 General appearance: Present: cooperative, A&O X 3, pleasant, no acute distress, answers questions appropriately - Head Head exam: Present: atraumatic, normal inspection, normocephalic - Eye Eye exam: Present: normal appearance, conjuntiva pink, sclera anicteric - Neck Neck exam general surgery: Present: supple, trachea midline. Absent: lymphadenopathy, tenderness - Respiratory Respiratory exam: Present: CTAB. Absent: accessory muscle use, chest wall tenderness, decreased breath sounds, rales, respiratory distress, rhonchi, wheezes - Cardiovascular Cardiovascular exam: Present: RRR, +S1, +S2. Absent: diastolic murmur, gallop, rubs, systolic murmur - GI/Abdominal GI/Abdominal exam: Present: normal bowel sounds, soft, no peritoneal signs. Absent: distended, hepatomegaly, tenderness - Extremities Exam Extremities exam: Present: normal capillary refill, normal inspection, warm, radial pulses palpable and symmetrical. Absent: calf tenderness, cyanotic, pedal edema, tenderness - Neurological Exam Neurological exam: Present: oriented X3, no focal deficits. Absent: facial droop, speech deficit - Skin Skin exam: Present: dry, intact, normal color, warm. Absent: rash
[2017-03-06] MEDS ORDERED: Metoprolol XL (24 HR) Succ 25 MG TAB.ER.24H PO SCH (14:15)
[2017-03-06] MEDS ORDERED: Isosorbide MONOnitrate (24 HR) 30 MG TAB.ER.24H PO SCH (14:15)
--- NOTE | 2017-03-06 14:25 | Cardiology Consult Note ---
<Howard,Casey R - Last Filed: 03/06/17 15:00> Date of Encounter: 03/06/17 Time of Encounter: 14:12 Assessment and Plan (1) Abnormal stress test Current Visit: Yes Status: Acute Stress test completed. Perfusion imaging positive for ischemia--small sized mildly intense reversible defect in apical inferolateral wall. Gated EF 68%, no TID. Low risk stress perfusion finding <3% of myocardium ischemic. Pt has multiple risk factors for CAD--tobacco abuse, obesity, HTN, family hx. Discussed options of medical management vs. LHC--R/B/A to both. Pt would like to try medical management first. ASA, Statin, BB, Imdur. Recommend close outpt follow up for re-evaluation. Instructed that if chest pain returns/worsens, report to ED. Cardiology signing off. Reconsult PRN. Will coordinate outpt follow-up. (2) Chest pain Current Visit: Yes Status: Acute Chest pain somewhat atypical--usually occurs at rest and not associated with exertion. Pt attributes pain to increased stress from caring for her terminally ill mother. No EKG changes. Troponins negative x 3. Multiple CAD risk factors--CAD, obesity, tobacco abuse and family hx. Low risk abnormal stress test as above, medical management vs LHC with R/B/A to both discussed and pt prefers medical management. ASA, Statin, BB, Imdur and close outpt follow-up. Qualifiers: Chest pain type: unspecified Qualified Code(s): R07.9 - Chest pain, unspecified Discussion w patient/family: The assessment and plan as outlined above was discussed with the patient and/or family members who expressed understanding and agreement. All questions were answered. Thank you for involving us in the care of your patient. Please call with any questions. I will discuss all the above with Dr. Yuri Monet and make changes as necessary. History of Present Illness Consult date: 03/06/17 Requesting physician: Yaneth Nevarez Consult reason: abnormal stress test Chief complaint: chest pain History of present illness: Ms. Kelley is a 56 year old female with PMH of arthritis, reported episode of atrial fibrillation in the past, COPD, hypertension, tobacco abuse. According to the patient for the past 2 days she is been experiencing intermittent chest pressure she describes as heaviness, midsternal, occasionally radiating to her left shoulder that usually occurs at rest, not exertion. She reports lower extremity edema last week. She was referred to ED. She reports that she had a LHC [address] [facility] without intervention and reportedly no obstructive disease. She reports she had an episode atrial fibrillation. She reports being under stress due to taking care of her terminally ill mother. EKG is unchanged, troponins negative. Stress test completed. Perfusion imaging positive for ischemia--small sized mildly intense reversible defect in apical inferolateral wall. Gated EF 68%, no TID. Low risk stress perfusion finding <3% of myocardium ischemic. Cardiology consulted for further recommendations. Pt currently chest pain free, reports she feels her pain is stress related. She does have family hx with father having AR in his 40s and brother with CAD and PCI in his 40s. Echo 04/01/14 EF 60-65%, moderate LVDD, mildly dilated LA, no significant valvular dysfunction. Past Med Surg Social Fam HX - Past Medical History Medical history: arthritis, atrial fibrillation, COPD Psychiatric history: no psych history - Social History Smoking Status: Current every day smoker Smokeless Tobacco Status: No Alcohol use: none Drug use: none - Family History Mother Hx Family Cardiac Disorders: Yes Hx Family Respiratory Disorders: Yes Hx Family Genitourinary Disorders: Yes Father Living Status: Hx Family Cardiac Disorders: Yes Hx Family Endocrine Disorder: Yes Medications and Allergies Albuterol Sulfate [Albuterol Inhaler] 2 puff IH Q4H PRN 10/06/16 [History] Ipratropium [ATROVENT Inhaler] 2 puff IH QID PRN 10/06/16 [History] Aspirin Enteric Coated [Aspirin EC] 81 mg PO DAILY #30 tablet.dr 03/06/17 [Rx] Atorvastatin [Lipitor] 40 mg PO HS #30 tablet 03/06/17 [Rx] Isosorbide MONOnitrate (24 HR) [Imdur] 30 mg PO DAILY #30 tab.er.24h 03/06/17 [ Rx] Metoprolol XL (24 HR) Succ [Toprol Xl] 12.5 mg PO DAILY #15 tab.er.24h 03/06/17 [Rx] Nitroglycerin 0.4 mg SL Q5MIN PRN #25 tab.subl 03/06/17 [Rx] 3 Allergy/AdvReac Type Severity Reaction Status Date / Time doxycycline Allergy Rash Verified 03/05/17 18:18 Tetracycline Allergy Rash Verified 03/05/17 18:18 All Systems Review: A 10-system review of systems was performed and is negative for pertinent findings except as documented above in the HPI. - Cardiovascular Cardiovascular: as per HPI, chest pain at rest, dyspnea on exertion, leg edema - Respiratory Respiratory: dyspnea Physical Examination Vital Signs, Last 4 Hours Temp Pulse Resp BP Pulse Ox 03/06/17 12:05 98 F 75 18 109/73 97 Vital Signs Temp Pulse Resp BP Pulse Ox 03/06/17 12:05 98 F 75 18 109/73 97 03/06/17 09:40 96 03/06/17 07:01 97.6 F 59 16 103/66 96 03/06/17 03:37 97.8 F 69 16 93/58 96 03/05/17 23:18 97.8 F 80 16 109/67 94 03/05/17 21:36 98.5 F 75 16 143/83 99 03/05/17 21:14 98.8 F 16 137/84 03/05/17 20:08 83 109/79 03/05/17 20:03 79 112/88 03/05/17 19:57 68 18 119/88 95 03/05/17 18:40 69 14 126/79 98 03/05/17 18:15 98.4 F 77 16 144/92 99 Intake and Output 03/05/17 03/06/17 03/06/17 23:59 07:59 15:59 Intake Total 60 / 60 Balance 60 / 60 Intake: Oral 60 / 60 Other: Meal Lunch Percent of Meal Consumed 80% Weight 102.1 kg 102.1 kg Patient Weight 03/06/17 23:59 Weight 102.1 kg General: Conversant, No Apparent Distress HEENT: Atraumatic, Normocephaly, Mucus Membranes Moist Neck: No JVD, Normal carotid pulses Cardiac: Reg Rate and Rhythm, Normal S1 and S2, No Murmur Lungs: Normal Breath Sounds, No Wheeze, Rales, Rhonchi Neuro: Alert and responsive, No focal deficits noted Abdomen: Soft, Non-Tender Skin: No rashes noted on visualized skin Musculoskeletal: No Chest Wall Tenderness Extremities: No Clubbing, No Cyanosis, No Edema, Normal Pulses Results 03/06/17 00:56 03/06/17 00:56 Lab Results 03/06/17 03/06/17 03/06/17 00:56 00:56 00:56 WBC 6.4 Hgb 13.2 Hct 42.5 Plt Count 265 Sodium 141 Potassium 4.0 Chloride 108 Carbon Dioxide 27 BUN 11 Creatinine 0.81 Glucose 113 H Calcium 9.3 Magnesium 1.8 Troponin I 0.00 03/06/17 06:24 WBC Hgb Hct Plt Count Sodium Potassium Chloride Carbon Dioxide BUN Creatinine Glucose Calcium Magnesium Troponin I 0.00 Short CBC 03/06/17 03/05/17 Range/Units 00:56 18:46 WBC 6.4 7.1 (4.3-11.1) K/mcL Hgb 13.2 13.3 (11.5-15.4) g/dL Hct 42.5 43.3 (35.3-44.9) % Plt Count 265 284 (140-400) K/mcL Neutrophils # 3.7 4.0 (1.6-8.9) K/mcL BMP 03/06/17 03/05/17 Range/Units 00:56 18:46 Sodium 141 141 (136-145) mEq/L Potassium 4.0 4.1 (3.5-4.5) mEq/L Chloride 108 108 (98-109) mEq/L Carbon Dioxide 27 28 (19-29) mEq/L BUN 11 10 (7-20) mg/dL Creatinine 0.81 0.77 (0.57-1.11) mg/dL Glucose 113 H 89 (70-99) mg/dL Calcium 9.3 9.8 (8.6-10.8) mg/dL Cardiac Enzymes 03/06/17 03/06/17 03/05/17 Range/Units 06:24 00:56 18:46 Troponin I 0.00 0.00 0.00 (0-0.03) ng/mL Impressions Chest X-Ray 03/05/17 18:31 IMPRESSION: No acute process. D/ / Tracey Sam MD / Tracey Sam MD Interpreting Provider: Tracey Sam MD Active Medications Acetaminophen (Tylenol) 650 mg PO Q6HR PRN PRN Reason: Mild Pain (1-3) Stop: 09/04/17 21:02 Aspirin (Aspirin Ec) 81 mg PO DAILY [facility] Stop: 09/05/17 09:01 Last Admin: 03/06/17 09:50 Dose: 81 mg Atorvastatin Calcium (Lipitor) 40 mg PO HS [facility] Stop: 09/05/17 21:01 Enoxaparin Sodium (Lovenox) 40 mg SQ 0700 [place] PRN Reason: Protocol Stop: 09/05/17 07:01 Last Admin: 03/06/17 09:50 Dose: 40 mg Isosorbide Mononitrate (Imdur) 30 mg PO DAILY [facility] Stop: 09/05/17 14:16 Metoprolol Succinate (Toprol Xl) 12.5 mg PO DAILY [facility] Stop: 09/05/17 14:16 Naloxone HCl (Narcan) 0.4 mg IVP Q2MIN PRN PRN Reason: Opioid Reversal Stop: 09/04/17 21:02 Nitroglycerin (Nitroglycerin) 0.4 mg SL Q5MIN PRN PRN Reason: Chest Pain Stop: 09/04/17 19:43 Last Admin: 03/05/17 20:03 Dose: 0.4 mg Ondansetron HCl (Zofran) 4 mg IVP Q8HR PRN PRN Reason: Nausea And Vomiting Stop: 09/04/17 21:02 - Imaging and Cardiology Stress Test: report reviewed Echo: report reviewed - EKG Interpretation EKG results cardiology: personally reviewed (SR, RBBB), other (24 hr tele AVG HR 73, SR, no significant pauses or arrhythmias.) Consult Discharge Plan - Plan Instructions: Chest Pain (DC) Referrals: Leah Gray MD [Partnered Physician] - 03/11/17 9:00 am Prescriptions: Nitroglycerin 0.4 mg SL Q5MIN PRN #25 tab.subl PRN Reason: Chest Pain Aspirin Enteric Coated [Aspirin EC] 81 mg PO DAILY #30 tablet.dr Atorvastatin [Lipitor] 40 mg PO HS #30 tablet Isosorbide MONOnitrate (24 HR) [Imdur] 30 mg PO DAILY #30 tab.er.24h Metoprolol XL (24 HR) Succ [Toprol Xl] 12.5 mg PO DAILY #15 tab.er.24h <Yuri Monet - Last Filed: 03/06/17 16:15> Date of Encounter: 03/06/17 - Attending Attestation I have personally performed a face to face evaluation on this patient. I have reviewed and agree with the care plan. History and Exam by me shows: Admitted with episodic chest pain, stress test today with small amount of ischemia. Discussed medical mgmt. vs. left heart cath. She prefers medical mgmt. at this time. Assessment and Plan Discussion w patient/family: The assessment and plan as outlined above was discussed with the patient and/or family members who expressed understanding and agreement. All questions were answered. Thank you for involving us in the care of your patient. Please call with any questions. History of Present Illness History of present illness: Ms. Kelley is a 56 year old female All Systems Review: A 10-system review of systems was performed and is negative for pertinent findings except as documented above in the HPI. Results 03/06/17 00:56 03/06/17 00:56 Lab Results 03/06/17 03/06/17 03/06/17 00:56 00:56 00:56 WBC 6.4 Hgb 13.2 Hct 42.5 Plt Count 265 Sodium 141 Potassium 4.0 Chloride 108 Carbon Dioxide 27 BUN 11 Creatinine 0.81 Glucose 113 H Calcium 9.3 Magnesium 1.8 Troponin I 0.00 03/06/17 06:24 WBC Hgb Hct Plt Count Sodium Potassium Chloride Carbon Dioxide BUN Creatinine Glucose Calcium Magnesium Troponin I 0.00
--- NOTE | 2017-03-06 15:34 | Electrocardiograph Report ---
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
== END 2017-03-06 15:35 | disposition home or self-care (01) ==
LOC: EMEROO 17:58 → 3BNU 17:58
PROVIDERS: ADMIT Internal Medicine; ATTEND Registered Nurse

== ENCOUNTER 2017-03-07 18:50 | Observation (INO) ==
[2017-03-07 20:04] LABS: Basophils # 0.1 K/mcL (0.0-0.2); Basophils % 0.8 %; Eosinophils # 0.2 K/mcL (0.0-0.6); Eosinophils % 3.8 %; Hemoglobin 12.4 g/dL (11.5-15.4); Immature Granulocytes % 0.3 % (0-4); Lymphocytes # 1.9 K/mcL (0.6-4.6); Lymphocytes % 30.8 %; Mean Corpuscular HGB Conc 30.2 g/dL (31.6-35.5); Mean Corpuscular Hemoglobin 24.8 pg (28.0-33.3); Mean Corpuscular Volume 81.8 fL (83.0-100.0); Mean Platelet Volume 9.5 fL (9.4-12.4); Monocytes # 0.4 K/mcL (0.0-1.3); Monocytes % 7.2 %; Neutrophils # 3.4 K/mcL (1.6-8.9); Platelet Count 258 K/mcL (140-400); Red Blood Count 5.01 M/mcL (3.82-4.97); Red Cell Distribution Width 16.5 % (11.5-14.5); Segmented Neutrophils % 57.1 %
[2017-03-07] MEDS ORDERED: Aspirin 81 MG TAB.CHEW PO STA (20:17)
[2017-03-07 20:19] LABS: Alanine Aminotransferase 11 Units/L (0-55); Albumin 3.2 g/dL (3.5-5.0); Albumin/Globulin Ratio 0.9 (1.1-2.2); Alkaline Phosphatase 78 Units/L (38-126); Aspartate Amino Transferase 11 Units/L (5-34); BUN/Creatinine Ratio 16 (6-26); Blood Urea Nitrogen 13 mg/dL (7-20); Calcium 9.4 mg/dL (8.6-10.8); Carbon Dioxide 28 mEq/L (19-29); Chloride 108 mEq/L (98-109); Globulin 3.5 g/dL (2.4-3.5); Glucose 101 mg/dL (70-99); Osmolality,Calculated 292 (280-300); Potassium 4.1 mEq/L (3.5-4.5); Sodium 141 mEq/L (136-145); Total Protein 6.7 g/dL (6.0-8.3); eGFR For African Americans > 60 (> 60); eGFR For Non-African Americans > 60 (> 60)
[2017-03-07 20:20] LABS: Bilirubin,Total < 0.2 mg/dL (0.2-1.2)
--- NOTE | 2017-03-07 20:58 | Emergency Department Note ---
Disposition Clinical Impression: Unstable angina pectoris Disposition: Admitted As Inpatient Referrals: NONE,PCP [Primary Care Provider] - Forms: ED Satisfaction Letter Chest Pain HPI - General Chief Complaint: ED Chest Pain Stated Complaint: CP Time Seen by Provider: 03/07/17 19:05 Source: patient Limitations: no limitations Vital Signs Reviewed: Yes Nursing Notes Reviewed: Yes - History of Present Illness HPI Narrative: Patient presents complaining of chest pain. Patient was recently discharged about 2 days ago for similar. She states that she had a abnormal stress test and was instructed by cardiology to return to the emergency department for evaluation. Patient denies aggravating alleviating factors denies fevers or chills. Patient denies numbness tingling patient denies aggravating alleviating factors. Severity scale (1-10): 2 - Related Data Home Medications Medication Instructions Recorded Confirmed Albuterol Sulfate [Albuterol 2 puff IH Q4H PRN 10/06/16 03/05/17 Inhaler] Ipratropium [ATROVENT Inhaler] 2 puff IH QID PRN 10/06/16 03/05/17 Previous Rx's Medication Instructions Recorded Aspirin Enteric Coated [Aspirin EC] 81 mg PO DAILY #30 tablet.dr 03/06/17 Atorvastatin [Lipitor] 40 mg PO HS #30 tablet 03/06/17 Isosorbide MONOnitrate (24 HR) 30 mg PO DAILY #30 tab.er.24h 03/06/17 [Imdur] Metoprolol XL (24 HR) Succ [Toprol 12.5 mg PO DAILY #15 tab.er.24h 03/06/17 Xl] Nitroglycerin 0.4 mg SL Q5MIN PRN #25 tab.subl 03/06/17 Allergies Allergy/AdvReac Type Severity Reaction Status Date / Time doxycycline Allergy Rash Verified 03/07/17 18:54 Tetracycline Allergy Rash Verified 03/07/17 18:54 All systems ED: reviewed and negative except as stated. 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 - Social History Smoking Status: Current every day smoker Alcohol use: Reports: none Drug use: Reports: none Physical Exam - General Limitations: no limitations General appearance: alert - Head Head exam: atraumatic, normocephalic, normal inspection - Eye Eye exam: Present: normal appearance, PERRL, EOMI - ENT ENT exam: normal exam, normal oropharynx, mucous membranes moist - Neck Neck exam: Present: normal inspection, full ROM, trachea midline - Chest Chest inspection: Present: normal inspection, symmetric chest wall rise - Respiratory Respiratory exam: Present: normal lung sounds bilaterally - Cardiovascular Cardiovascular exam: Present: regular rate, normal rhythm, normal heart sounds - Abdominal Exam Abdominal exam: Present: soft, Non-Tender. Absent: tenderness, distention, guarding, rebound, rigidity - Extremities Exam Extremities exam: Present: normal inspection, full ROM. Absent: tenderness, pedal edema - Back Exam Back exam: Present: normal inspection, full ROM. Absent: tenderness - Neurological Exam Neurological exam: Present: alert, oriented X3 - Psychiatric Psychiatric exam: Present: normal affect, normal mood - Skin Skin exam: Present: warm, dry, intact, normal color Course Vital Signs Temperature 97.4 F L 03/07/17 18:54 Pulse Rate 85 03/07/17 18:54 Respiratory Rate 20 03/07/17 18:54 Blood Pressure 152/90 03/07/17 18:54 O2 Sat by Pulse Oximetry 99 03/07/17 18:54 Temperature 97.4 F L 03/07/17 18:54 Pulse Rate 78 03/07/17 21:06 Respiratory Rate 18 03/07/17 21:06 Blood Pressure 113/79 03/07/17 21:06 O2 Sat by Pulse Oximetry 98 03/07/17 21:06 Oxygen Delivery Oxygen Delivery Room Air Chest Pain - [facility] Narrative Medical decision making narrative: Chest this patient with Dr. Monet of the cardiology service. He recommended admitting the patient and cardiology would consult on the patient. - Differential Diagnosis Likely: stable angina, unstable angina pectoris, atypical chest pain, st elevation myocardial infraction, chest pain - Lab Data Lab results reviewed: Yes I reviewed the patient's lab results. Result diagrams: 03/07/17 19:54 03/07/17 19:54 Lab Results 03/07/17 03/07/17 03/07/17 Range/Units 19:54 19:54 19:54 WBC 6.0 (4.3-11.1) K/mcL RBC 5.01 H (3.82-4.97) M/mcL Hgb 12.4 (11.5-15.4) g/dL Hct 41.0 (35.3-44.9) % MCV 81.8 L (83.0-100.0) fL MCH 24.8 L (28.0-33.3) pg MCHC 30.2 L (31.6-35.5) g/dL RDW 16.5 H (11.5-14.5) % Plt Count 258 (140-400) K/mcL MPV 9.5 (9.4-12.4) fL Immature Gran % 0.3 (0-4) % Seg Neutrophils % 57.1 % Lymphocytes % 30.8 % Monocytes % 7.2 % Eosinophils % 3.8 % Basophils % 0.8 % Neutrophils # 3.4 (1.6-8.9) K/mcL Lymphocytes # 1.9 (0.6-4.6) K/mcL Monocytes # 0.4 (0.0-1.3) K/mcL Eosinophils # 0.2 (0.0-0.6) K/mcL Basophils # 0.1 (0.0-0.2) K/mcL Sodium 141 (136-145) mEq/L Potassium 4.1 (3.5-4.5) mEq/L Chloride 108 (98-109) mEq/L Carbon Dioxide 28 (19-29) mEq/L BUN 13 (7-20) mg/dL Creatinine 0.80 (0.57-1.11) mg/dL Est GFR ( Amer) > 60 (> 60) Est GFR (Non-Af Amer) > 60 (> 60) BUN/Creatinine Ratio 16 (6-26) Glucose 101 H (70-99) mg/dL Calculated Osmolality 292 (280-300) Calcium 9.4 (8.6-10.8) mg/dL Total Bilirubin < 0.2 L (0.2-1.2) mg/dL AST 11 (5-34) Units/L ALT 11 (0-55) Units/L Alkaline Phosphatase 78 (38-126) Units/L Troponin I 0.00 (0-0.03) ng/mL Serum Total Protein 6.7 (6.0-8.3) g/dL Albumin 3.2 L (3.5-5.0) g/dL Globulin 3.5 (2.4-3.5) g/dL Albumin/Globulin Ratio 0.9 L (1.1-2.2) - Radiology Data Radiology results reviewed: Yes I reviewed the patient's radiology results. Chest X-Ray 03/07/17 19:07 IMPRESSION: No acute process. D/ / Miguel Perez MD / Miguel Perez MD Interpreting Provider: Miguel Perez MD - EKG Data EKG attestation: Yes I reviewed and interpreted this EKG. EKG shows normal: sinus rhythm Rate: normal
[2017-03-07] MEDS ORDERED: Nitroglycerin 0.4 MG TAB.SUBL SL PRN (21:14)
[2017-03-07] MEDS ORDERED: Naloxone 0.4 MG/ML INJ IVP PRN (21:17)
[2017-03-07] MEDS ORDERED: Ondansetron 4 MG/2 ML VIAL IVP PRN (21:17)
--- NOTE | 2017-03-07 21:25 | Internal Med History&Physical ---
Date of Encounter: 03/08/17 Time of Encounter: 21:23 Assessment and Plan (1) Chest pain Current visit: Yes Status: Acute Patient has an abnormal distress stress with her a small reversible ischemia on apical and inferior lateral aspect. Cardiology gave her option of medical treatment versus LHC. She was placed on full medication but now she is having chest pain and therefore she will return and cardiology will be consulted. Her serial cardiac enzymes will be checked. Qualifiers: Chest pain type: unspecified Qualified Code(s): R07.9 - Chest pain, unspecified (2) COPD (chronic obstructive pulmonary disease) Current visit: Yes Status: Chronic Continue nebulizers were given to quit his smoking Qualifiers: COPD type: emphysema Emphysema type: unspecified Qualified Code(s): J43.9 - Emphysema, unspecified (3) Obesity (BMI 35.0-39.9 without comorbidity) Current visit: Yes Status: Acute Counseling provided Internal Medicine - H&P: HPI Chief complaint: Chest pain Admitted From: Home Plans for Post Hospital Care: Home History of present illness: Ms. Kelley is a 56 year old female who was recently admitted for chest pain. At that time a stress test was done which was abnormal showing inferior apical reversible ischemia. She was offered LHC versus medical treatment and she chose to be on medical treatment and therefore she was discharged home on beta muriel and aspirin and statins. Now she has returned with chest pain which is recurrent would last for a few minutes increased with stress and reduce with rest. It seems pretty typical for angina. Cardiology has been informed by the ER who plans to see her in the morning. She denies any accompanying symptoms of cough headache neck pain and abdominal pain nausea vomiting diarrhea dysuria urgency frequency hemorrhage or hematochezia hematemesis melena or any other symptoms otherwise. She was given nitroglycerin in the ER which helped but gave her some headache now. Past Med Surg Social Fam HX - Past Medical History Medical history: arthritis, atrial fibrillation, COPD, coronary artery disease Psychiatric history: no psych history - Social History Smoking Status: Current every day smoker Smokeless Tobacco Status: No Alcohol use: none Drug use: none - Family History Mother Hx Family Cardiac Disorders: Yes Hx Family Respiratory Disorders: Yes Father Living Status: Hx Family Cardiac Disorders: Yes Hx Family Endocrine Disorder: Yes Internal Medicine - H&P: Meds Albuterol Sulfate [Albuterol Inhaler] 2 puff IH Q4H PRN 10/06/16 [History] Ipratropium [ATROVENT Inhaler] 2 puff IH QID PRN 10/06/16 [History] Aspirin Enteric Coated [Aspirin EC] 81 mg PO DAILY #30 tablet.dr 03/06/17 [Rx] Atorvastatin [Lipitor] 40 mg PO HS #30 tablet 03/06/17 [Rx] Isosorbide MONOnitrate (24 HR) [Imdur] 30 mg PO DAILY #30 tab.er.24h 03/06/17 [ Rx] Metoprolol XL (24 HR) Succ [Toprol Xl] 12.5 mg PO DAILY #15 tab.er.24h 03/06/17 [Rx] Nitroglycerin 0.4 mg SL Q5MIN PRN #25 tab.subl 03/06/17 [Rx] 3 Allergy/AdvReac Type Severity Reaction Status Date / Time doxycycline Allergy Rash Verified 03/07/17 18:54 Tetracycline Allergy Rash Verified 03/07/17 18:54 All Systems PM: A 10-system review of systems was performed and is negative for pertinent findings except as documented above in the HPI. - Constitutional Constitutional: no chills, no fever(s), no night sweats - EENT Eyes: no change in vision, no discharge, no pain, no photophobia Ears: no ear discharge, no ear pain, no tinnitus Nose, mouth and throat: no dysphagia, no nasal discharge, no neck pain, no sore throat - Cardiovascular Cardiovascular ROS IM: chest pain, no diaphoresis, no dyspnea, no lightheadedness, no palpitations, no syncope - Respiratory Respiratory: no cough, no dyspnea, no wheezing, no excessive phlegm production - Gastrointestinal Gastrointestinal: no abdominal pain, no diarrhea, no hematemesis, no hematochezia, no melena, no nausea, no vomiting - Genitourinary Genitourinary: no change in urinary stream, no dysuria, no flank pain, no hematuria - Musculoskeletal Musculoskeletal ROS IM: no numbness, no tingling - Integumentary Integumentary IM: no rash, no unusual bruising - Neurological Neurological ROS: headache(s), no confusion, no convulsions, no focal weakness, no numbness, no tingling, no tremor(s) - Hematologic/Lymphatic Hematologic/Lymphatic: no easy bruising - Constitutional Vitals: Temp Pulse Resp BP Pulse Ox 97.4 F L 78 18 113/79 98 03/07/17 18:54 03/07/17 21:06 03/07/17 21:06 03/07/17 21:06 03/07/17 21:06 General appearance: Present: A&O X 3, no acute distress, answers questions appropriately - Head Head exam: Present: atraumatic, normocephalic - Eye Eye exam: Present: PERRL, conjuntiva pink, sclera anicteric Pupils: Present: PERRL - Neck Neck exam general surgery: Present: supple, trachea midline. Absent: lymphadenopathy - Respiratory Respiratory exam: Present: CTAB. Absent: accessory muscle use, rales, rhonchi, wheezes - Cardiovascular Cardiovascular exam: Present: RRR, +S1, +S2. Absent: diastolic murmur, gallop, rubs, systolic murmur - GI/Abdominal GI/Abdominal exam: Present: normal bowel sounds, soft, no peritoneal signs. Absent: distended, tenderness - Extremities Exam Extremities exam: Present: warm, radial pulses palpable and symmetrical. Absent : calf tenderness, cyanotic, pedal edema - Neurological Exam Neurological exam: Present: CN II-XII intact, oriented X3, no focal deficits. Absent: pronater drift, facial droop, speech deficit - Skin Skin exam: Present: dry, intact Internal Med - H&P Results - Labs CBC & Chem 7: 03/08/17 02:28 03/08/17 02:28 Labs: Short CBC 03/07/17 Range/Units 19:54 WBC 6.0 (4.3-11.1) K/mcL Hgb 12.4 (11.5-15.4) g/dL Hct 41.0 (35.3-44.9) % Plt Count 258 (140-400) K/mcL Neutrophils # 3.4 (1.6-8.9) K/mcL BMP 03/07/17 19:54 Sodium 141 Potassium 4.1 Chloride 108 Carbon Dioxide 28 BUN 13 Creatinine 0.80 Glucose 101 H Calcium 9.4 Cardiac Enzymes 03/07/17 Range/Units 19:54 Troponin I 0.00 (0-0.03) ng/mL Liver Function 03/07/17 Range/Units 19:54 Total Bilirubin < 0.2 L (0.2-1.2) mg/dL AST 11 (5-34) Units/L ALT 11 (0-55) Units/L Alkaline Phosphatase 78 (38-126) Units/L Albumin 3.2 L (3.5-5.0) g/dL - Impressions ITS Impressions Chest X-Ray 03/07/17 19:07 IMPRESSION: No acute process. D/ / Miguel Perez MD / Miguel Perez MD Interpreting Provider: Miguel Perez MD
[2017-03-07] MEDS ORDERED: 0.9 % Sodium Chloride 1,000 ML IVC SCH (21:30)
[2017-03-07] MEDS: Ipratropium 1 PUFF INHALER IH SCH (23:17)
[2017-03-07] MEDS: Acetaminophen 325 MG TABLET PO PRN (23:41)
[2017-03-07] MEDS: Aspirin Enteric Coated 81 MG Tablet PO SCH (23:42)
[2017-03-07] MEDS: Isosorbide MONOnitrate (24 HR) 30 MG TAB.ER.24H PO SCH (23:42)
[2017-03-08] MEDS: *HR* Morphine 2 MG/ML SYRINGE IVP PRN ×2 (00:35→10:18)
[2017-03-08 04:07] LABS: Basophils % 0.7 %; Eosinophils # 0.2 K/mcL (0.0-0.6); Eosinophils % 4.4 %; Hemoglobin 12.1 g/dL (11.5-15.4); Immature Granulocytes % 0.6 % (0-4); Lymphocytes # 1.9 K/mcL (0.6-4.6); Lymphocytes % 35.7 %; Mean Corpuscular HGB Conc 30.3 g/dL (31.6-35.5); Mean Corpuscular Hemoglobin 25.1 pg (28.0-33.3); Mean Corpuscular Volume 82.8 fL (83.0-100.0); Monocytes # 0.4 K/mcL (0.0-1.3); Monocytes % 7.2 %; Neutrophils # 2.8 K/mcL (1.6-8.9); Platelet Count 253 K/mcL (140-400); Red Blood Count 4.83 M/mcL (3.82-4.97); Red Cell Distribution Width 16.6 % (11.5-14.5); Segmented Neutrophils % 51.4 %
[2017-03-08 04:29] LABS: Alanine Aminotransferase 12 Units/L (0-55); Albumin 2.9 g/dL (3.5-5.0); Albumin/Globulin Ratio 0.9 (1.1-2.2); Alkaline Phosphatase 72 Units/L (38-126); Aspartate Amino Transferase 10 Units/L (5-34); BUN/Creatinine Ratio 18 (6-26); Bilirubin,Total 0.3 mg/dL (0.2-1.2); Blood Urea Nitrogen 14 mg/dL (7-20); Calcium 9.1 mg/dL (8.6-10.8); Carbon Dioxide 26 mEq/L (19-29); Chloride 110 mEq/L (98-109); Globulin 3.3 g/dL (2.4-3.5); Glucose 105 mg/dL (70-99); Osmolality,Calculated 293 (280-300); Potassium 4.1 mEq/L (3.5-4.5); Sodium 141 mEq/L (136-145); Total Protein 6.2 g/dL (6.0-8.3); eGFR For African Americans > 60 (> 60); eGFR For Non-African Americans > 60 (> 60)
[2017-03-08] MEDS: Ipratropium 1 PUFF INHALER IH SCH ×4 (04:35→20:50)
--- NOTE | 2017-03-08 08:24 | Internal Med Progress Note ---
Date of Encounter: 03/08/17 Time of Encounter: 08:21 - Assessment and plan (1) Unstable angina pectoris Current Visit: Yes Status: Acute Assessment and plan: Patient was recently hospitalized for chest pain. She underwent stress test. Stress test: Perfusion imaging positive for ischemia: Small size mildly intensity reversible defect in the apical, inferior lateral wall. Cardiology discussed at that point options. Left heart catheterization versus medical management. Patient's mother is terminally ill and that is the reason she chose the option of medical management. Patient went home but she has a persistent chest pain. Plan: Cardiology on the board. We will wait for their review. Meantime we will continue ASA/statin/beta muriel/Imdur (2) Tobacco use Current Visit: No Status: Chronic Assessment and plan: Patient is active smoker. Explained patient at length regarding cessation of smoking. (3) COPD (chronic obstructive pulmonary disease) Current Visit: Yes Status: Chronic Assessment and plan: Stable COPD. Qualifiers: COPD type: emphysema Emphysema type: unspecified Qualified Code(s): J43.9 - Emphysema, unspecified (4) DVT prophylaxis Current Visit: No Status: Acute Assessment and plan: Heparin. Medical decision making: This patient is a moderate to severe risk of worsening in spite of being on appropriate medication due to underlying comorbid condition - Subjective Interval history: Patient seen and examined. Chart reviewed. Patient was recently discharged from hospital. Patient is comfortably lying in a bed. Patient denies any shortness of breath, nausea, vomiting, abdominal pain or diarrhea. - Constitutional Vitals: Temp Pulse Resp BP Pulse Ox 97.8 F 68 18 98/62 95 03/08/17 06:57 03/08/17 06:57 03/08/17 06:57 03/08/17 06:57 03/08/17 06:57 General appearance: Present: A&O X 3, no acute distress, answers questions appropriately - Head Head exam: Present: atraumatic, normocephalic - Eye Eye exam: Present: PERRL, conjuntiva pink, sclera anicteric Pupils: Present: PERRL - Neck Neck exam general surgery: Present: supple, trachea midline. Absent: lymphadenopathy - Respiratory Respiratory exam: Present: CTAB. Absent: accessory muscle use, rales, rhonchi, wheezes - Cardiovascular Cardiovascular exam: Present: RRR, +S1, +S2. Absent: diastolic murmur, gallop, rubs, systolic murmur - GI/Abdominal GI/Abdominal exam: Present: normal bowel sounds, soft, no peritoneal signs. Absent: distended, tenderness - Extremities Exam Extremities exam: Present: warm, radial pulses palpable and symmetrical. Absent : calf tenderness, cyanotic, pedal edema - Neurological Exam Neurological exam: Present: CN II-XII intact, oriented X3, no focal deficits. Absent: pronater drift, facial droop, speech deficit - Skin Skin exam: Present: dry, intact Internal Medicine: Result - Labs CBC & Chem 7: 03/08/17 02:28 03/08/17 02:28 Labs: Short CBC 03/08/17 Range/Units 02:28 WBC 5.4 (4.3-11.1) K/mcL Hgb 12.1 (11.5-15.4) g/dL Hct 40.0 (35.3-44.9) % Plt Count 253 (140-400) K/mcL Neutrophils # 2.8 (1.6-8.9) K/mcL BMP 03/08/17 02:28 Sodium 141 Potassium 4.1 Chloride 110 H Carbon Dioxide 26 BUN 14 Creatinine 0.80 Glucose 105 H Calcium 9.1 Cardiac Enzymes 03/07/17 03/08/17 03/08/17 Range/Units 22:24 02:28 07:02 Troponin I 0.00 0.00 0.00 (0-0.03) ng/mL Liver Function 03/08/17 Range/Units 02:28 Total Bilirubin 0.3 (0.2-1.2) mg/dL AST 10 (5-34) Units/L ALT 12 (0-55) Units/L Alkaline Phosphatase 72 (38-126) Units/L Albumin 2.9 L (3.5-5.0) g/dL Consult Discharge Plan - Plan Referrals: NONE,PCP [Primary Care Provider] -
--- NOTE | 2017-03-08 08:53 | Cardiology Consult Note ---
Date of Encounter: 03/08/17 Time of Encounter: 08:49 Assessment and Plan (1) Chest pain Current Visit: Yes Status: Acute Possible angina. Recent low risk stress test. Has had recurrent chest pain despite medical mgmt. She now agrees to left heart cath. Qualifiers: Chest pain type: unspecified Qualified Code(s): R07.9 - Chest pain, unspecified Discussion w patient/family: The assessment and plan as outlined above was discussed with the patient and/or family members who expressed understanding and agreement. All questions were answered. Thank you for involving us in the care of your patient. Please call with any questions. History of Present Illness Consult date: 03/08/17 Requesting physician: Terrell Frye Consult reason: Chest pain History of present illness: Ms. Kelley is a 56 year old female with a history of abnormal stress test. During recent admission options for treatment were discussed, including medical mgmt. and left heart cath. She elected to try medical mgmt. At discharge she was stable but at home she began to feel worsening fatigue and continued chest pain. She is now willing to proceed with heart cath. Past Med Surg Social Fam HX - Past Medical History Medical history: arthritis, atrial fibrillation, COPD, coronary artery disease Psychiatric history: no psych history - Social History Smoking Status: Current every day smoker Packs per day: 1 Smokeless Tobacco Status: No Alcohol use: none Drug use: none - Family History Mother Hx Family Cardiac Disorders: Yes Hx Family Respiratory Disorders: Yes Father Living Status: Hx Family Cardiac Disorders: Yes Hx Family Endocrine Disorder: Yes Medications and Allergies Albuterol Sulfate [Albuterol Inhaler] 2 puff IH Q4H PRN 10/06/16 [History] Ipratropium [ATROVENT Inhaler] 2 puff IH QID PRN 10/06/16 [History] Aspirin Enteric Coated [Aspirin EC] 81 mg PO DAILY #30 tablet. 03/06/17 [Rx] Atorvastatin [Lipitor] 40 mg PO HS #30 tablet 03/06/17 [Rx] Isosorbide MONOnitrate (24 HR) [Imdur] 30 mg PO DAILY #30 tab.er.24h 03/06/17 [ Rx] Metoprolol XL (24 HR) Succ [Toprol Xl] 12.5 mg PO DAILY #15 tab.er.24h 03/06/17 [Rx] Nitroglycerin 0.4 mg SL Q5MIN PRN #25 tab.subl 03/06/17 [Rx] 3 Allergy/AdvReac Type Severity Reaction Status Date / Time doxycycline Allergy Rash Verified 03/07/17 18:54 Tetracycline Allergy Rash Verified 03/07/17 18:54 All Systems Review: A 10-system review of systems was performed and is negative for pertinent findings except as documented above in the HPI. Physical Examination Vital Signs, Last 4 Hours Temp Pulse Resp BP Pulse Ox 03/08/17 06:57 97.8 F 68 18 98/62 95 General: Conversant, No Apparent Distress HEENT: Atraumatic, Normocephaly, Mucus Membranes Moist Neck: No JVD, Normal carotid pulses Cardiac: Reg Rate and Rhythm, Normal S1 and S2, No Murmur Lungs: Normal Breath Sounds, No Wheeze, Rales, Rhonchi Neuro: Alert and responsive, No focal deficits noted Abdomen: Soft, Non-Tender Skin: No rashes noted on visualized skin Musculoskeletal: No Chest Wall Tenderness Extremities: No Clubbing, No Cyanosis, No Edema, Normal Pulses Results 03/08/17 02:28 03/08/17 02:28 Lab Results 03/07/17 03/08/17 03/08/17 22:24 02:28 02:28 WBC 5.4 Hgb 12.1 Hct 40.0 Plt Count 253 Sodium 141 Potassium 4.1 Chloride 110 H Carbon Dioxide 26 BUN 14 Creatinine 0.80 Glucose 105 H Calcium 9.1 Total Bilirubin 0.3 AST 10 ALT 12 Alkaline Phosphatase 72 Troponin I 0.00 03/08/17 03/08/17 02:28 07:02 WBC Hgb Hct Plt Count Sodium Potassium Chloride Carbon Dioxide BUN Creatinine Glucose Calcium Total Bilirubin AST ALT Alkaline Phosphatase Troponin I 0.00 0.00 Consult Discharge Plan - Plan Referrals: NONE,PCP [Primary Care Provider] -
[2017-03-08] MEDS: Aspirin Enteric Coated 81 MG Tablet PO SCH (10:04)
[2017-03-08] MEDS: Nicotine 21 MG PATCH.TD24 TD SCH (10:04)
[2017-03-08] MEDS: Isosorbide MONOnitrate (24 HR) 30 MG TAB.ER.24H PO SCH (10:19)
[2017-03-08] MEDS: Metoprolol XL (24 HR) Succ 25 MG TAB.ER.24H PO SCH (10:19)
--- NOTE | 2017-03-08 12:37 | Electrocardiograph Report ---
[address] [address] Test Date: 2017-03-07 Pat Name: Ashley Kelley Department: 104 Room: 2NE25 Gender: F Ribbon Blocker: LAURA : 1960 Requested By: Georgi Aguillon Order Number: [id number] Reading MD: Jayden Rodriguez MD Measurements Intervals [place] Rate: 80 P: 32 [place]: 175 QRS: -35 QRSD: 114 T: 17 QT: 374 QTc: 410 Interpretive Statements SINUS RHYTHM MARKED LEFT AXIS DEVIATION LOW QRS VOLTAGE IN PRECORDIAL LEADS INCOMPLETE RIGHT BUNDLE BRANCH BLOCK Electronically Signed On 03-08-2017 12:36:04 EDT by Jayden Rodriguez MD
--- NOTE | 2017-03-08 12:45 | Electrocardiograph Report ---
[address] [place], [place] [address] Test Date: 2017-03-08 Pat Name: Ashley Kelley Department: 111 Room: 2N5 Gender: F Case Manager: [id number] : 1960 Requested By: Terrell Frye Order Number: [id number] Reading MD: Celina Monet Measurements Intervals [place] Rate: 72 P: 43 [place]: 178 QRS: -26 QRSD: 118 T: 20 QT: 406 QTc: 431 Interpretive Statements SINUS RHYTHM LOW QRS VOLTAGE IN PRECORDIAL LEADS INCOMPLETE RIGHT BUNDLE BRANCH BLOCK POSSIBLE LATERAL MYOCARDIAL INFARCTION, OF INDETERMINATE AGE Electronically Signed On 03-08-2017 12:43:00 EDT by Celina Monet
[2017-03-08] MEDS: Acetaminophen 325 MG TABLET PO PRN (15:35)
[2017-03-08] MEDS: *HR* HYDROcodone/Acet 5/325 mg TABLET PO PRN (19:35)
[2017-03-09] MEDS: *HR* HYDROcodone/Acet 5/325 mg TABLET PO PRN ×2 (00:53→16:53)
[2017-03-09] MEDS: Ipratropium 1 PUFF INHALER IH SCH ×4 (04:41→19:55)
[2017-03-09] MEDS: *HR* Morphine 2 MG/ML SYRINGE IVP PRN ×4 (04:55→21:43)
--- NOTE | 2017-03-09 07:57 | Internal Med Progress Note ---
<Abbie Reyes - Last Filed: 03/09/17 09:35> Date of Encounter: 03/09/17 Time of Encounter: 09:35 - Assessment and plan (1) Unstable angina pectoris Current Visit: Yes Status: Acute Assessment and plan: [facility] today Continue ASA, statin, beta muriel, Imdur cardiology on board; appreciate recommendations (2) COPD (chronic obstructive pulmonary disease) Current Visit: Yes Status: Chronic Assessment and plan: chronic, stable continue home medications: atrovent, albuterol Qualifiers: COPD type: emphysema Emphysema type: unspecified Qualified Code(s): J43.9 - Emphysema, unspecified (3) Tobacco use Current Visit: No Status: Chronic Assessment and plan: nicotine patch - Subjective Interval history: Patient resting comfortably in bed waiting for [facility]. - Constitutional Vitals: Temp Pulse Resp BP Pulse Ox 98.1 F 68 14 124/77 97 03/09/17 07:39 03/09/17 07:39 03/09/17 07:42 03/09/17 07:39 03/09/17 07:42 General appearance: Present: no acute distress - Head Head exam: Present: atraumatic, normocephalic - Eye Eye exam: Present: PERRL, conjuntiva pink, sclera anicteric Pupils: Present: PERRL - Neck Neck exam general surgery: Present: supple, trachea midline - Respiratory Respiratory exam: Present: CTAB. Absent: accessory muscle use, rales, rhonchi, wheezes - Cardiovascular Cardiovascular exam: Present: RRR, +S1, +S2. Absent: diastolic murmur, gallop, rubs, systolic murmur - GI/Abdominal GI/Abdominal exam: Present: normal bowel sounds, soft, no peritoneal signs. Absent: distended, tenderness - Extremities Exam Extremities exam: Present: warm, radial pulses palpable and symmetrical. Absent : calf tenderness, cyanotic, pedal edema - Neurological Exam Neurological exam: Present: alert. Absent: facial droop, speech deficit - Skin Skin exam: Present: dry, intact Internal Medicine: Result - Labs CBC & Chem 7: 03/08/17 02:28 03/08/17 02:28 Consult Discharge Plan - Plan Referrals: Adilene Ugalde, PAC [Physician Commercial Marketing Specialist] - <Melva,Terrell P - Last Filed: 03/09/17 20:42> Date of Encounter: 03/09/17 - Assessment and plan (1) Unstable angina pectoris Current Visit: Yes Status: Acute (2) Tobacco use Current Visit: No Status: Chronic (3) COPD (chronic obstructive pulmonary disease) Current Visit: Yes Status: Chronic Qualifiers: COPD type: emphysema Emphysema type: unspecified Qualified Code(s): J43.9 - Emphysema, unspecified (4) DVT prophylaxis Current Visit: No Status: Acute - Constitutional Vitals: Temp Pulse Resp BP Pulse Ox 97.7 F 70 16 128/75 97 03/09/17 15:06 03/09/17 16:36 03/09/17 19:56 03/09/17 16:36 03/09/17 19:56 Internal Medicine: Result - Labs CBC & Chem 7: 03/08/17 02:28 03/08/17 02:28 - Attending Attestation I examined this patient and my medical decision-making was reviewed with the Resident Physician. I agree with the documented findings, disposition and treatment plan as described except to the extent set forth below. Admitted for left heart catheterization due to unstable angina due to coronary artery disease. Left heart catheterization shows coronary artery disease which needs a medical management. Plan: We will follow the recommendations from cardiology.
[2017-03-09] MEDS: Aspirin Enteric Coated 81 MG Tablet PO SCH (08:14)
[2017-03-09] MEDS: Isosorbide MONOnitrate (24 HR) 30 MG TAB.ER.24H PO SCH (08:14)
[2017-03-09] MEDS: Metoprolol XL (24 HR) Succ 25 MG TAB.ER.24H PO SCH (08:15)
[2017-03-09] MEDS: Nicotine 21 MG PATCH.TD24 TD SCH (08:17)
[2017-03-09] MEDS ORDERED: 0.9 % Sodium Chloride 1,000 ML ONE ×2 (10:38→11:03)
[2017-03-09] MEDS ORDERED: *HR* Heparin 10,000 UNIT/10 ML VIAL ONE (10:38)
[2017-03-09] MEDS ORDERED: Nitroglycerin 1,000 MCG/10 ML VIAL IV ONE (10:38)
[2017-03-09] MEDS ORDERED: Heparin 1,000 UNITS/500 mL NS 500 ML ONE (10:38)
[2017-03-09] MEDS ORDERED: *HR* Midazolam HCl 2 MG/2 ML VIAL ONE (12:08)
[2017-03-09] MEDS ORDERED: *HR* FentaNYL (PF) 100 MCG/2 ML VIAL ONE (12:09)
--- NOTE | 2017-03-09 12:27 | Pre-Sedation Evaluation ---
Pre-sedation evaluation - Pre-sedation checklist Date of procedure: 03/09/17 Procedure: [facility] Recent Vitals: Last Vital Signs Temp 98.1 F 03/09/17 07:39 Pulse 68 03/09/17 07:39 Resp 14 03/09/17 07:42 BP 124/77 03/09/17 07:39 Pulse Ox 97 03/09/17 07:42 H&P (including ROS) documented in medical record: Yes Previous reaction to sedatives/anesthetics: No Dietary Status: NPO after Midnight Airway Assessment: Patient can open mouth completely, TMJ function normal Dentition: No loose teeth or bridges Possible difficult airway: No ASA Classification *see protocol: CLASS II-Mild systemic disease Plan of Care: Pt appropriate candidate for procedure/moderate/conscious sedation , Risks/benefits of procedure/sedation discussed w/ patient/family
--- NOTE | 2017-03-09 12:28 | History & Physical Report ---
Date of Encounter: 03/09/17 Time of Encounter: 12:28 24 Hour HP Update - Instructions Instructions: If the History and Physical is less than 30 days old and was completed prior to A.M. admission and or procedure and has NOT been updated on calendar day of procedure please complete this update prior to performing procedure. - Update Patient reports changes in Medical Condition: No Changes in examination, assessment, or condition: No Changes in Medication: No Preop tests/diagnostics Reviewed: Yes Surgery Remains Indicated: Yes Consent for Planned Operative Procedure(s) Verified: Yes - Pre-Operative Checklist Preoperative Checklist Indicated: No
[2017-03-09] MEDS ORDERED: *HR* Atropine Sulfate 1 MG/10 ML SYRINGE ONE (12:51)
--- NOTE | 2017-03-09 13:01 | Invasive Diagnostic Lab Proc ---
Name: Ashley Kelley Date of Study: 03/09/2017 Date: 1960 Ht: 65.0in Medical Record#: [id number] Age: 56 Wt: 227.08lb Gender: Female BSA: 2.09 Order #: [id number] BMI: 37.83 Physicians Procedure Physician: Sharmin Manrique MD Referring MD: Referring MD: Staff Name Position Time In Francia Lopez RN Monitor 12:14 PM Arron Hoffman RT (R) Scrub 12:14 PM Erika Mclain RN Special Collections Librarian 12:14 PM Rachell Mederos RN Special Collections Librarian 12:14 PM Indications Indication Abnormal Test - Stress Procedures Performed Procedure L HRT ARTERY/VENTRICLE ANGIO Pre-Procedure Checklist Informed consent is complete signed and on chart. H&P is on chart. ID band is on and ID verified with patient. Patient NPO for procedure The procedure was described for the patient and questions were answered. Blood Pressure: 132/85 ECG is on chart. Rhythm: NSR Plan of Care Patient will tolerate the procedure without complications. Adequate level of comfort will be maintained. Hemodynamics will remain stable Patient will recover from procedure without complications. Respiratory function will be maintained. Cardiac rhythm will remain stable. Patient temperature will be maintained. Patient and/or family have verbalized understanding of the procedure. Patient Education Chief Complaint/Reason for Test: Cardiac Cath Developmental Category: Adult (18-64 years) Developmentally Appropriate for Age: Yes Learning Barriers: None Education Needs: Procedure Education Method: Verbal Information Taught: Cardiac Cath Educational Evaluation: Able to repeat information Intravenous Access Time IV Size Location DC'd Fluid/Drip Rate Units RN 11:02 AM 20g 1 05/28" Patent On Arrival Lt Hand 0.9NaCl 25 ml/hr Rachell Mederos RN Allergies doxycycline Tetracycline Vital Signs Time BP (mmHg) HR (bpm) O2 Sat. RR (bpm) LOC 12:13 PM 132 / 85 68 98 % 12 5 = Fully awake and oriented or at pre-proc level 12:15 PM / % 5 = Fully awake and oriented or at pre-proc level 12:16 PM / % 5 = Fully awake and oriented or at pre-proc level 12:37 PM / % 4 = Oriented but drowsy 12:36 PM 116 / 73 65 99 % 15 12:41 PM 117 / 68 62 98 % 11 12:46 PM 103 / 61 56 100 % 13 12:48 PM 117 / 68 45 99 % 8 12:51 PM 120 / 70 49 98 % 17 12:11 PM 132 / 85 66 98 % 12:16 PM 121 / 73 66 99 % 12 12:21 PM 118 / 74 67 98 % 14 12:26 PM 121 / 71 65 98 % 23 12:31 PM 128 / 75 66 99 % 20 12:37 PM / % 5 = Fully awake and oriented or at pre-proc level Procedural Medications Time Medication Dose Units Method Given By 12:15 PM Oxygen 2 L/min nasal cannula Rachell Mederos RN 12:15 PM Versed 1 mg Intravenous Rachell Mederos RN 12:15 PM Fentanyl 50 mcg Intravenous Rachell Mederos RN 12:31 PM Lidocaine 2% 10 ml Subcutaneous Sharmin Manrique MD 12:31 PM Versed 0.5 mg Intravenous Rachell Mederos RN 12:31 PM Fentanyl 25 mcg Intravenous Rachell Mederos RN 12:33 PM Lidocaine 2% 9 ml Subcutaneous Sharmin Manrique MD ASA Classification: CLASS II- Mild systemic disease (i.e. well-controlled diabetes, hypertension, asthma, cigarette smoking) Adam Score Preprocedure Postprocedure Activity 2- Moves 4 extremities sustained head lift Activity 2- Moves 4 extremities sustained head lift Circulation 2- SBP +/= 20 points of pre-anesthetic level Circulation 2- SBP +/= 20 points of pre-anesthetic level Consciousness 2- Awake and alert oriented x 3 Consciousness 2- Awake and alert oriented x 3 O2 Saturation 2- Able to maintain O2 satruation of 92% on room air O2 Saturation 2- Able to maintain O2 satruation of 92% on room air Respiratory 2- Able to deep breathe and cough well Respiratory 2- Able to deep breathe and cough well Total Score 10 Total Score 10 Contrast Agent: Isovue Diagnostic Contrast: 44 ml Total Contrast: 44 ml Fluoro Dose: 247 mGy Procedure Log Time Note Enter By 11:02 AM CathStat 12:10 PM Vitals capture started with the following parameters, Patient=Adult, Interval=5 min, Initial Toqrpyae=921 mmHg, Deflation Rate=5 mmHg, Cuff placed on Left Arm 12:11 PM HR=66 bpm, SCME=897/85 mmhg, SpO2=98.0 %, Comment=NSR 12:12 PM Recorded ECG: HR=63 Condition=Condition 1 12:14 PM [facility] 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 12:14 PM Meet and greet completed [facility] 12:14 PM Sign in performed according to hospital policy. [facility] 12:14 PM Procedure start 12:14 [facility] 12:14 PM Francia Lopez RN Position: Monitor Time in: 12:14 [facility] 12:14 PM Arron Hoffman (R) Position: Scrub Time in: 12:14 [facility] 12:14 PM Erika Mclain RN Position: Special Collections Librarian Time in: 12:14 [facility] 12:14 PM Rachell Mederos RN Position: Special Collections Librarian Time in: 12:14 [facility] 12:14 PM Patient charges- Angio tray pack, Navilyst 3mm J, Pulse Oximetry and ACIST tubing and transducer [facility] 12:15 PM Case Delayed No [facility] 12:15 PM Hair removed from procedure site in procedure lab using clippers. Bilateral groin prepped with Chloraprep by Arron Hoffman (R), safety strap applied then patient was draped. Skin intact. [facility] 12:15 PM Time: 12:15 Oxygen on at 2 L/min per nasal cannula by Rachell Mederos RN [facility] 12:15 PM Time: 12:15 Versed 1 mg Intravenous Given by Rachell Mederos RN [facility] 12:15 PM Time: 12:15 Fentanyl 50 mcg Intravenous Given by Rachell Mederos RN [facility] 12:15 PM Time: 12:15 Patient comfortable and pain free: Yes [facility] 12:16 PM Time: 12:15LOC: 5 = Fully awake and oriented or at pre-proc level [facility] 12:16 PM HR=66 bpm, KSNW=216/73 mmhg, SpO2=99.0 %, Resp=12 B/min, Comment=NSR 12:16 PM Clinical Presentation: Stable angina [facility] 12:17 PM Pressure channel 3 zeroed. 12:21 PM HR=67 bpm, DQID=877/74 mmhg, SpO2=98.0 %, Resp=14 B/min, Comment=NSR 12:26 PM HR=65 bpm, QHQB=452/71 mmhg, SpO2=98.0 %, Resp=23 B/min, Comment=NSR 12:30 PM ASA Class CLASS II- Mild systemic disease (i.e. well-controlled diabetes, hypertension, asthma, cigarette smoking) [facility] 12:31 PM Time: 12:15 Patient comfortable and pain free: Yes [facility] 12:31 PM HR=66 bpm, YRFV=415/75 mmhg, SpO2=99.0 %, Resp=20 B/min, Comment=NSR 12:31 PM Time: 12:16LOC: 5 = Fully awake and oriented or at pre-proc level [facility] 12: PM Time out performed according to hospital policy [facility] 12: PM Time: 12:31 10 ml Lidocaine 2% to right groin Subcutaneous Given by Sharmin Manrique MD [facility] PM Time: 12:31 Versed 0.5 mg Intravenous Given by Rachell Mederos RN [facility] 12: PM Time: 12:31 Fentanyl 25 mcg Intravenous Given by Rachell Mederos RN [facility] 12:33 PM Time: 12:33 9 ml Lidocaine 2% to right groin Subcutaneous Given by Shar[facility]rique [facility] 12:34 PM Micro-Introducer Kit utilized for sheath placement [facility] 12:34 PM Right femoral hand injected for sheath placement [facility] 12:35 PM Access obtained by percutaneous puncture. 6Fr 10cm Terumo [place] sheath placed in right Femoral artery. [id number] [facility] 12:36 PM 5Fr FR 4 catheter inserted over the wire DNC [facility] 12:36 PM HR=65 bpm, QXJZ=387/73 mmhg, SpO2=99.0 %, Resp=15 B/min, Comment=NSR 12:36 PM 0.035 145cm Navilyst 3mmJ wire [id number] [facility] 12:36 PM RCA angiography performed in multiple views. [facility] 12:37 PM Recorded Pressure: Ao, HR=64, Condition=Condition 1 (Aorta) Ao 114/68/88 12:37 PM Time: 12:37 Patient comfortable and pain free: Yes [facility] 12:37 PM Time: 12:37LOC: 4 = Oriented but drowsy [facility] 12:37 PM Catheter removed [facility] 12:38 PM Lesion found in Proximal RCA. Pre Stenosis: 50 lparsley 12:38 PM Lesion found in Distal RCA. Pre Stenosis: 50 lparsley 12:38 PM 5Fr FL 4 catheter inserted over the wire [facility] lparsley 12:38 PM LCA angiography performed in multiple views. lparsley 12:39 PM Coronary Dominance: right lparsley 12:39 PM Recorded Pressure: Ao, HR=66, Condition=Condition 1 (Aorta) Ao 110/71/89 12:41 PM HR=62 bpm, NGKH=880/68 mmhg, SpO2=98.0 %, Resp=11 B/min, Comment=NSR 12:41 PM Catheter removed lparsley 12:42 PM 5Fr Pigtail catheter inserted over the wire [facility] lparsley 12:42 PM Catheter selectively placed in left ventricle lparsley 12:42 PM Recorded Pressure: LV, HR=58, Condition=Condition 1 (Left Ventricle) LV 126/13/15 12:42 PM Recorded Pressure: LV, Ao, HR=65, Condition=Condition 1 (Left Ventricle) LV 117/15/18, (Aorta) Ao 111/66/88 12:43 PM LV pressures obtained. lparsley 12:43 PM Catheter removed lparsley 12:43 PM Right Coronary, Right Posterior Descending Arteries with Right Posterolateral and Acute Marginal branches with 50 % stenosis. lparsley 12:44 PM Procedure completed at 12:44 lparsley 12:44 PM Sign out completed: Radiation Dose 246.65 mGy Fluoro Time: 1.5 Isovue 370 - 200ml contrast 44 ml given by Sharmin Manrique MD. Complications: NoneCardiac Rehab Consult needed: NoConfirmed administered medications: Yes lparsley 12:44 PM Isovue 370 - 200ml,1 Bottle(s) used. lparsley 12:45 PM Arterial sheath pulled, Angio-seal closure device used and was Successful [id number] S/N. lparsley 12:45 PM Post ECG NSR lparsley 12:45 PM Post Blood Pressure 117/68 lparsley 12:46 PM HR=56 bpm, JURN=610/61 mmhg, YuR2=699.0 %, Resp=13 B/min, Comment=NSR 12:46 PM NIBP STAT measurement started. 12:47 PM Patient c/o feeling funny. heart rate low 40's, diaphoretic lparsley 12:48 PM fluids open for bolus [facility] 12:48 PM HR=45 bpm, OAKC=217/68 mmhg, SpO2=99.0 %, Resp=8 B/min, Comment=NSR 12:49 PM 12:49 Post Pulses Bilateral DP & PT 1+ [facility] 12:49 PM Information taught Cardiac Cath and Angioseal [facility] 12:49 PM Education needs Procedure, Plan of Care, and Safe & Effective Use of Medications [facility] 12:49 PM Learning barriers :None [facility] 12:49 PM Education Methods Verbal [facility] 12:49 PM Education evaluation Able to repeat information [facility] 12:49 PM Site status No bleeding/hematoma - Rt Groin as reported by Arron Hoffman RT (R) at 12:49 [facility] 12:49 PM Opsite applied [facility] 12:51 PM HR=49 bpm, EBHG=081/70 mmhg, SpO2=98.0 %, Resp=17 B/min, Comment=NSR 12:51 PM Report given to Ros LOZANO Pt taken to E Room #25. 12:50 [facility] 12:51 PM Plavix, Effient or Brilinta given No [facility] 12:51 PM Delay to floor No [facility] 12:52 PM Patient out of room: 12:52 [facility] 12:53 PM Time: 12:37LOC: 5 = Fully awake and oriented or at pre-proc level [facility] 12:53 PM Time: 12:37 Patient comfortable and pain free: Yes [facility] 12:53 PM Family not available at this time [facility] 12:53 PM Complications: None [facility] 12:53 PM Fluoro Time: 1.5 [facility] 12:54 PM Isovue 370 - 200ml contrast 44 ml given by Sharmin Manrique MD. [facility] Complications Complication None Hemodynamics Pressures Site Systolic/A Wave Diastolic/V Wave Mean AO 114 68 88 AO 110 71 89 LV 126 13 15 LV 117 15 18 AO 111 66 88 Post Procedure Information Blood Pressure: 117/68 mmHg Rhythm: NSR Post procedural instructions were given Closure Device Time Device Success/Fail 03/09/2017 12:54:00 PM Angio-seal Evolution Successful Site Checks Time Location Status Staff Sheath In? Note 12:49 PM Rt Groin No bleeding/hematoma Arron Hoffman RT (R) Pulses Time Site Pre-Procedure Post-Procedure Note 03/09/2017 11:02:00 AM Bilateral DP & PT 2+ 12:49:00 PM Bilateral DP & PT 1+ Updated by Francia Lopez RN on 03/09/2017 12:56:09 PM electronically signed on 03/09/2017 12:57:00 PM with status of Final
--- NOTE | 2017-03-09 14:04 | Event Note ---
Date of Encounter: 03/09/17 Time of Encounter: 14:03 - Cardiology Event Note LHC revealed nonobstructive disease. Had 40-50% RCA and LAD disease, but no intervention warranted. Continue ASA, Statin, BB, Imur. Cardiology signing off. Reconsult PRN. Final cath report pending.
[2017-03-09] MEDS: *HR* Heparin 5,000 UNIT/ML VIAL SQ SCH ×2 (14:51→21:43)
[2017-03-10] MEDS: Ipratropium 1 PUFF INHALER IH SCH ×2 (03:29→11:40)
[2017-03-10] MEDS: *HR* Morphine 2 MG/ML SYRINGE IVP PRN ×2 (03:50→08:27)
[2017-03-10] MEDS: *HR* Heparin 5,000 UNIT/ML VIAL SQ SCH (06:44)
[2017-03-10] MEDS: *HR* HYDROcodone/Acet 5/325 mg TABLET PO PRN (06:44)
[2017-03-10 07:36] LABS: Basophils # 0.1 K/mcL (0.0-0.2); Basophils % 0.6 %; Eosinophils # 0.2 K/mcL (0.0-0.6); Eosinophils % 2.7 %; Hematocrit 40.6 % (35.3-44.9); Hemoglobin 12.7 g/dL (11.5-15.4); Immature Granulocytes % 0.2 % (0-4); Lymphocytes # 1.9 K/mcL (0.6-4.6); Lymphocytes % 23.5 %; Mean Corpuscular HGB Conc 31.3 g/dL (31.6-35.5); Mean Corpuscular Hemoglobin 25.5 pg (28.0-33.3); Mean Corpuscular Volume 81.5 fL (83.0-100.0); Monocytes # 0.4 K/mcL (0.0-1.3); Monocytes % 4.9 %; Neutrophils # 5.5 K/mcL (1.6-8.9); Platelet Count 242 K/mcL (140-400); Red Blood Count 4.98 M/mcL (3.82-4.97); Segmented Neutrophils % 68.1 %
[2017-03-10 07:46] LABS: BUN/Creatinine Ratio 19 (6-26); Blood Urea Nitrogen 14 mg/dL (7-20); Calcium 9.4 mg/dL (8.6-10.8); Carbon Dioxide 25 mEq/L (19-29); Chloride 110 mEq/L (98-109); Glucose 90 mg/dL (70-99); Osmolality,Calculated 292 (280-300); Potassium 3.9 mEq/L (3.5-4.5); Sodium 141 mEq/L (136-145); eGFR For African Americans > 60 (> 60); eGFR For Non-African Americans > 60 (> 60)
[2017-03-10 07:56] VITALS: BP 121/82
[2017-03-10] MEDS: Aspirin Enteric Coated 81 MG Tablet PO SCH (08:26)
[2017-03-10] MEDS: Isosorbide MONOnitrate (24 HR) 30 MG TAB.ER.24H PO SCH (08:26)
[2017-03-10] MEDS: Metoprolol XL (24 HR) Succ 25 MG TAB.ER.24H PO SCH (08:26)
[2017-03-10] MEDS: Nicotine 21 MG PATCH.TD24 TD SCH (08:26)
--- NOTE | 2017-03-10 09:14 | Discharge Summary ---
<Abbie Reyes - Last Filed: 03/10/17 09:10> Date of Encounter: 03/10/17 Time of Encounter: 09:10 - Discharge Diagnosis (1) Unstable angina pectoris Priority: Primary Status: Acute (2) COPD (chronic obstructive pulmonary disease) Priority: Secondary Status: Chronic Qualifiers: COPD type: emphysema Emphysema type: unspecified Qualified Code(s): J43.9 - Emphysema, unspecified (3) Tobacco use Priority: Secondary Status: Chronic - Discharge Medications Prescriptions: Isosorbide MONOnitrate (24 HR) [Imdur] 45 mg PO DAILY #45 tab.er.24h Home Medications: Albuterol Sulfate [Albuterol Inhaler] 2 puff IH Q4H PRN 10/06/16 [History] Ipratropium [ATROVENT Inhaler] 2 puff IH QID PRN 10/06/16 [History] Aspirin Enteric Coated [Aspirin EC] 81 mg PO DAILY #30 tablet.dr 03/06/17 [Rx] Atorvastatin [Lipitor] 40 mg PO HS #30 tablet 03/06/17 [Rx] Metoprolol XL (24 HR) Succ [Toprol Xl] 12.5 mg PO DAILY #15 tab.er.24h 03/06/17 [Rx] Nitroglycerin 0.4 mg SL Q5MIN PRN #25 tab.subl 03/06/17 [Rx] Isosorbide MONOnitrate (24 HR) [Imdur] 45 mg PO DAILY #45 tab.er.24h 03/10/17 [ Rx] Allergies/Adverse Reactions: 3 Allergy/AdvReac Type Severity Reaction Status Date / Time doxycycline Allergy Rash Verified 03/07/17 18:54 Tetracycline Allergy Rash Verified 03/07/17 18:54 Procedures/tests Complete & Pending: Procedures Performed prior 72 hours Category Date Time Status CL Cardiac Catheterization [CL] Routine [employer] Scout 03/09/17 08:00 Ordered ECG 12 lead ECG [ECG] Routine Y 03/08/17 09:01 Completed Date of admission: 03/07/17 21:28 Primary care physician: PCP NONE Discharging clinician: Abbie Reyes Anticipated date of discharge: 03/10/17 - Patient Status Disposition: Home, Self-Care Condition: Good Functional capacity at discharge: independent ambulation Overall status at discharge: patient is back to baseline - Discharge Instructions - Diet and Activity Diet: low fat, low cholesterol Interval History: Patient seen ad examined. No chest ain at this time, but continues to have episodic chest pain. Hospital course: Ms. Kelley is a 56 year old female with a positive stress test recently who elected for medical management rather than H admitted for continued unstable angina. She agreed to [facility] after admission. LHC showed moderate one vessel CAD. Short LAD with diffuse small vessel disease. Optimal medical management was recommended along with risk factor modification. - Time Spent with Patient Total time spent providing and/or coordinating discharge services: - Constitutional Vitals: Temp Pulse Resp BP Pulse Ox 98.1 F 73 15 121/82 95 03/10/17 07:43 03/10/17 07:43 03/10/17 07:47 03/10/17 07:43 03/10/17 07:47 General appearance: Present: A&O X 3, no acute distress, answers questions appropriately - Head Head exam: Present: atraumatic, normocephalic - Eye Eye exam: Present: PERRL, conjuntiva pink, sclera anicteric Pupils: Present: PERRL - Neck Neck exam general surgery: Present: supple, trachea midline - Respiratory Respiratory exam: Present: CTAB. Absent: accessory muscle use, rales, rhonchi, wheezes - Cardiovascular Cardiovascular exam: Present: RRR, +S1, +S2. Absent: diastolic murmur, gallop, rubs, systolic murmur - GI/Abdominal GI/Abdominal exam: Present: normal bowel sounds, soft, no peritoneal signs. Absent: distended, tenderness - Extremities Exam Extremities exam: Present: warm. Absent: calf tenderness, cyanotic, pedal edema - Neurological Exam Neurological exam: Present: alert, oriented X3. Absent: facial droop, speech deficit - Skin Skin exam: Present: dry, intact, normal color, warm <Kamlesh Mendes - Last Filed: 03/10/17 10:38> Date of Encounter: 03/10/17 - Discharge Diagnosis (1) Unstable angina pectoris Status: Acute (2) Obesity (BMI 35.0-39.9 without comorbidity) Priority: Secondary Status: Chronic (3) COPD (chronic obstructive pulmonary disease) Status: Chronic Qualifiers: COPD type: emphysema Emphysema type: panlobular Qualified Code(s): J43.1 - Panlobular emphysema (4) Tobacco use Status: Chronic Procedures/tests Complete & Pending: Procedures Performed prior 72 hours Category Date Time Status CL Cardiac Catheterization [CL] Routine [employer] 03/09/17 08:00 Ordered ECG 12 lead ECG [ECG] Routine Y 03/08/17 09:01 Completed Date of admission: 03/07/17 21:28 Primary care physician: PCP NONE - Diet and Activity Activity: increase activity as tolerated Hospital course: Ms. Kelley is a 56 year old female - Time Spent with Patient Total time spent providing and/or coordinating discharge services: - Constitutional Vitals: Temp Pulse Resp BP Pulse Ox 98.1 F 73 15 121/82 95 03/10/17 07:43 03/10/17 07:43 03/10/17 07:47 03/10/17 07:43 03/10/17 07:47 - Attending Attestation I examined this patient and my medical decision-making was reviewed with the Resident Physician on 03/10/17. I agree with the documented findings, disposition and treatment plan as described except to the extent set forth below. Ms Kelley has been in observation for unstable angina. [facility] showed disease - medical management. Continues to have some symptoms. SL nitro gives headache. Currently afebrile with stable vitals. Exam Alert Comfortable Heart reg not tachy Lungs clear No edema Plan D/C today Increase Imdur to 45mg daily.
[2017-03-10] MEDS ORDERED: FLUARIX QUAD 2017-18 36MOS UP/PF 0.5 ML SYRINGE IM ONE (11:27)
[2017-03-11] MEDS ORDERED: Isosorbide MONOnitrate (24 HR) 30 MG TAB.ER.24H PO ONE (10:39)
== END 2017-03-10 12:09 | disposition home or self-care (01) ==
LOC: 2NENU 18:50 → EMEROO 18:50 → SUATTDRO 21:28 → 2NENU 22:36
PROVIDERS: ADMIT Family Medicine; ATTEND Internal Medicine